=== PATIENT | female | born 1995 | race Hispanic/Latino ===

== ENCOUNTER 2018-10-15 21:49 | Emergency (ER) | payer OTHER, SELFPAY ==
[2018-10-15] MEDS ORDERED: METOCLOPRAMIDE 10 MG/2mL INJ ONE (22:55)
[2018-10-15] MEDS ORDERED: MEPERIDINE HCL 25 MG/0.5 ML ONE (22:55)
[2018-10-15] MEDS ORDERED: NA CHLORIDE 0.9% 1,000 ML ONE (22:55)
--- NOTE | 2018-10-15 23:47 | ER ---
Nurse's Notes [facility] Name: Margaret oT Age: 23 yrs Sex: Female : 1995 Arrival Date: 10/15/2018 Time: 21:51 Bed 8 Private MD: Diagnosis: Headache Presentation: 10/15 22:00 Presenting complaint: Patient states: she has had a headache since last night which has bb not gone away she has taken over the counter medications with no relief the pain is throbbing pt denies nausea, vomiting or neck pain. Transition of care: patient was not received from another setting of care. Onset of symptoms was October 14, 2018. Risk Assessment: Do you want to hurt yourself or someone else? Patient reports no desire to harm self or others. Initial Sepsis Screen: Does the patient meet any 2 criteria? No. Patient's initial sepsis screen is negative. Does the patient have a suspected source of infection? No. Patient's initial sepsis screen is negative. Care prior to arrival: None. 22:00 Method Of Arrival: Ambulatory bb 22:00 Acuity: OTILIA 3 bb Triage Assessment: 22:30 Headache History: Denies prior headaches. General: Appears uncomfortable, Behavior is ea calm, cooperative, appropriate for age. Pain: Complains of pain in top of head Pain currently is 8 out of 10 on a pain scale. Quality of pain is described as aching, Pain began suddenly, Also complains of no other associated symptoms. EENT: No signs and/or symptoms were reported regarding the EENT system. Neuro: Level of Consciousness is awake, alert, obeys commands, Oriented to person, place, time, situation. Respiratory: Airway is patent Respiratory effort is even, unlabored, Respiratory pattern is regular, symmetrical. Derm: Skin is pink, warm \T\ dry. Musculoskeletal: Circulation, motion, and sensation intact. 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 - Social history:: Smoking status: Patient/guardian denies using tobacco. - Family history:: not pertinent. - Ebola Screening: : No symptoms or risks identified at this time. - Hospitalizations: : No recent hospitalization is reported. Screenin:29 Abuse screen: Denies threats or abuse. Nutritional screening: No deficits noted. ea Tuberculosis screening: No symptoms or risk factors identified. Fall Risk None identified. Assessment: 22:19 Reassessment: Pt taken to CT. ea 23:18 Reassessment: Patient and/or family updated on plan of care and expected duration. Pain ea level reassessed. Patient is alert, oriented x 3, equal unlabored respirations, skin warm/dry/pink. Symptoms improved Patient states feeling better. 23:53 Reassessment: Patient and/or family updated on plan of care and expected duration. Pain ea level reassessed. Patient is alert, oriented x 3, equal unlabored respirations, skin warm/dry/pink. Discharge instruction given to patient, verbalized the understanding of instruction. Pt left ED ambulatory, pt tolerating well. Patient states feeling better. Vital Signs: 22:04 BP 126 / 80; Pulse 92; Resp 16 S; Temp 98(O); Pulse Ox 99% on R/A; Weight 111.13 kg bb (R); Height 5 ft. 5 in. (165.10 cm) (R); Pain 8/10; 0612 00:00 BP 128 / 70; Pulse 80; Resp 18; Temp 97.6; Pulse Ox 99% ; ea 10/15 22:04 Body Mass Index 40.77 (111.13 kg, 165.10 cm) bb [place] Coma Score: 10/15 23:46 Eye Response: spontaneous(4). Verbal Response: oriented(5). Motor Response: obeys rn commands(6). Total: 15. ED Course: 21:51 Patient arrived in ED. es 21:52 Remy Reveles MD is Attending Physician. rn 22:03 Triage completed. bb 22:04 Arm band placed on Patient placed in an exam room, on a stretcher, on pulse oximetry. bb 22:19 Miriam Hayes, RN is Primary Nurse. ea 22:29 Patient has correct armband on for positive identification. Bed in low position. Call ea light in reach. Side rails up X2. 22:35 CT Head Brain wo Cont In Process Unspecified. EDMS 10/16 00:00 No provider procedures requiring assistance completed. IV discontinued, intact, ea bleeding controlled, No redness/swelling at site. Pressure dressing applied. Administered Medications: 10/15 22:43 Drug: NS 0.9% 1000 ml Route: IV; Rate: 1000 ml; Site: right forearm; rv 22:44 Drug: Reglan 10 mg Route: IVP; Site: right antecubital; rv 23:33 Follow up: Response: No adverse reaction; Pain is decreased ea 22:44 Drug: Demerol 25 mg Route: IVP; Site: right antecubital; rv 23:33 Follow up: Response: No adverse reaction; Pain is decreased ea Outcome: 23:46 Discharge ordered by . thalia 10/16 00:00 Patient left the ED. ea 00:01 Discharged to home ambulatory, with significant other. ea 00:01 Condition: improved 00:01 Discharge instructions given to patient, Instructed on discharge instructions, follow up and referral plans. Demonstrated understanding of instructions, follow-up care. Signatures: Dispatcher [employer] Katey Sarmiento Brenda, RN RN Remy Tao MD MD rn Antunez, Elena, RN RN ea Vicente, Ronaldo RN RN rv
--- NOTE | 2018-10-15 23:47 | EDPHYS ---
Physician Documentation [facility] Name: Margaret oT Age: 23 yrs Sex: Female : 1995 Arrival Date: 10/15/2018 Time: 21:51 Bed 8 Private MD: ED Physician Remy Reveles HPI: 10/15 22:02 This 23 yrs old Female presents to ER via Unassigned with complaints of rn Headache. 22:02 The patient complains of pain to the forehead and back of head. The patient describes rn the headache as aching, throbbing. Onset: The symptoms/episode began/occurred yesterday. Associated signs and symptoms: Pertinent negatives: altered mental status, dizziness, fever, malaise, nausea, neck stiffness, paresthesias, Photophobia rash, sinus congestion, sinus tenderness, vision changes, vision loss, vomiting, weakness, vertigo. Severity of symptoms: At its worst the pain was moderate, in the emergency department the pain is unchanged. Headache History: The patient has had previous headaches and this one is more severe than previous episodes. The symptoms are alleviated by nothing. the symptoms are aggravated by nothing. The patient has experienced similar episodes in the past. Reports several headaches in past but this one is worse, no trauma, no fever or stiff neck, no vomiting, no focal neurological complaint, no sore throat, no sinus problems. Doesn't think she is . No infectious symptoms. Just didn't go away so came in. No famhx of aneurysm or brain tumor.. 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 - Social history:: Smoking status: Patient/guardian denies using tobacco. - Family history:: not pertinent. - Ebola Screening: : No symptoms or risks identified at this time. - Hospitalizations: : No recent hospitalization is reported. ROS: 22:03 Constitutional: Negative for fever, chills, and weight loss, Eyes: Negative for injury, rn pain, redness, and discharge, Neck: Negative for injury, pain, and swelling, Cardiovascular: Negative for chest pain, palpitations, and edema, Respiratory: Negative for shortness of breath, cough, wheezing, and pleuritic chest pain, Abdomen/GI: Negative for abdominal pain, nausea, vomiting, diarrhea, and constipation, MS/Extremity: Negative for injury and deformity, Skin: Negative for injury, rash, and discoloration, Neuro: Negative for weakness, numbness, tingling, and seizure, + for headache Exam: 22:03 Constitutional: This is a well developed, well nourished patient who is awake, alert, rn and in no acute distress. Ambulatory to room without difficulty or distress Head/Face: Normocephalic, atraumatic. Eyes: Pupils equal round and reactive to light, extra-ocular motions intact. Lids and lashes normal. Conjunctiva and sclera are non-icteric and not injected. Cornea within normal limits. Periorbital areas with no swelling, redness, or edema. ENT: MMM, no oral lesions, no swelling or exudate Neck: Trachea midline, no thyromegaly or masses palpated, and no cervical lymphadenopathy. Supple, full range of motion without nuchal rigidity, or vertebral point tenderness. No Meningismus. Respiratory: No increased work of breathing, no retractions or nasal flaring. Skin: Warm, dry with normal turgor. Normal color with no rashes, no lesions, and no evidence of cellulitis. MS/ Extremity: Pulses equal, no cyanosis. Neurovascular intact. Full, normal range of motion. Equal circumference. Neuro: Awake and alert, GCS 15, oriented to person, place, time, and situation. Cranial nerves II-XII grossly intact. Motor strength 5/5 in all extremities. Sensory grossly intact. Cerebellar exam normal. Normal gait. Vital Signs: 22:04 BP 126 / 80; Pulse 92; Resp 16 S; Temp 98(O); Pulse Ox 99% on R/A; Weight 111.13 kg bb (R); Height 5 ft. 5 in. (165.10 cm) (R); Pain 8/10; 10/16 00:00 BP 128 / 70; Pulse 80; Resp 18; Temp 97.6; Pulse Ox 99% ; ea 10/15 22:04 Body Mass Index 40.77 (111.13 kg, 165.10 cm) bb [place] Coma Score: 10/15 23:46 Eye Response: spontaneous(4). Verbal Response: oriented(5). Motor Response: obeys rn commands(6). Total: 15. MDM: 21:52 Patient medically screened. rn 23:46 Differential diagnosis: hypertensive headache, migraine, neoplasm, tension headache, rn vasomotor headache. Data reviewed: vital signs, nurses notes, lab test result(s), urinalysis, UPT: radiologic studies, CT scan. Counseling: I had a detailed discussion with the patient and/or guardian regarding: the historical points, exam findings, and any diagnostic results supporting the discharge/admit diagnosis, lab results, radiology results, the need for outpatient follow up, to return to the emergency department if symptoms worsen or persist or if there are any questions or concerns that arise at home. Response to treatment: the patient's symptoms have markedly improved after treatment, and as a result, I will discharge patient. Special discussion: I discussed with the patient/guardian in detail that at this point there is no indication for admission to the hospital. It is understood, however, that if the symptoms persist or worsen the patient needs to return immediately for re-evaluation. 10/15 22:28 Order name: Urine Dipstick--Ancillary (enter results) [facility] 10/15 22:28 Order name: Urine --Ancillary (enter results) [facility] 10/15 22:01 Order name: CT Head Brain wo Cont 10/15 22:03 Order name: Urine Dipstick-Ancillary (obtain specimen); Complete Time: 22:29 10/15 22:03 Order name: Urine Test (obtain specimen); Complete Time: 22:29 10/15 22:32 Order name: IV Start; Complete Time: 22:41 rn Administered Medications: 22:43 Drug: NS 0.9% 1000 ml Route: IV; Rate: 1000 ml; Site: right forearm; rv 22:44 Drug: Reglan 10 mg Route: IVP; Site: right antecubital; rv 23:33 Follow up: Response: No adverse reaction; Pain is decreased ea 22:44 Drug: Demerol 25 mg Route: IVP; Site: right antecubital; rv 23:33 Follow up: Response: No adverse reaction; Pain is decreased ea Disposition: 10/15/18 23:46 Discharged to Home. Impression: Headache. - Condition is Stable. - Discharge Instructions: General Headache Without Cause. - Medication Reconciliation Form, Thank You Letter, Antibiotic Education, Prescription Opioid Use form. - Follow up: Private Physician; When: As needed; Reason: Recheck today's complaints, Re-evaluation by your physician. - Problem is new. - Symptoms have improved. Signatures: Dispatcher [employer] EDMontserrat Sanchez RN RN Remy Tao MD MD rn Antunez, Elena, RN RN ea Vicente, Ronaldo RN RN rv Corrections: (The following items were deleted from the chart) 10/16 00:00 10/15 23:46 10/15/2018 23:46 Discharged to Home. Impression: Headache. Condition is ea Stable. Forms are Medication Reconciliation Form, Thank You Letter, Antibiotic Education, Prescription Opioid Use. Follow up: Private Physician; When: As needed; Reason: Recheck today's complaints, Re-evaluation by your physician. Problem is new. Symptoms have improved. rn
[2018-10-16 00:32] LABS: Urine Blood NEGATIVE (NEG); Urine Glucose NEGATIVE (NEG); Urine Protein NEGATIVE (NEG)
--- NOTE | 2018-10-16 11:08 | RAD REPORT ---
EXAM DESCRIPTION: CT - Head Brain Wo Cont - 10/15/2018 11:06 pm CLINICAL HISTORY: 23 years Female HEADACHE TECHNIQUE: Contiguous axial CT images obtained through the brain without IV contrast. This CT exam was performed according to our departmental dose-optimization program, which includes on e or more of the following dose reduction techniques: automated exposure control, adjustment of the m A and/or kV according to patient size, and/or use of iterative reconstruction technique. COMPARISON: No prior exams provided for comparison. FINDINGS: There is no intracranial hemorrhage, extraaxial collection, or acute transcortical infarct ion. The ventricles are normal in size and contour without mass-effect or midline shift. Osseous structure s are normal. Mild left ethmoid and left maxillary sinusitis. The remainder of the visualized paranasal sinuses and mastoid air cells are clear. IMPRESSION: Mild left ethmoid and left maxillary sinusitis. No other acute intracranial abnormalitie s. Electronically signed by: Macy Ocampo MD 10/15/2018 10:48 PM CDT Due to temporary technical issues with the PACS/Fluency reporting system, reports are being signed by the in house radiologist as a courtesy to ensure prompt reporting. The interpreting radiologist is f ully responsible for the content of the report.
== END 2018-10-16 | disposition home or self-care (01) ==
LOC: ER 21:49
DX: R51 Headache (principal); J45.909 Unspecified asthma, uncomplicated
CPT/HCPCS: 70450; 81003; 81025; 96374; 96375; 99283; J2175; J2765; J7030

== ENCOUNTER 2018-10-17 00:32 | Emergency (ER) | payer SELFPAY ==
[2018-10-17] MEDS ORDERED: NA CHLORIDE 0.9% 1,000 ML ONE (01:25)
[2018-10-17] MEDS ORDERED: METOCLOPRAMIDE 10 MG/2mL INJ ONE (01:25)
[2018-10-17] MEDS ORDERED: KETOROLAC 30 MG/ML INJ ONE (01:25)
[2018-10-17] MEDS ORDERED: DIPHENHYDRAMINE 50 MG/ML VIAL ONE (01:25)
[2018-10-17] MEDS ORDERED: DEXAMETHASONE 10 MG/ML VIAL ONE (01:25)
--- NOTE | 2018-10-17 02:39 | ER ---
Nurse's Notes [facility] Name: Margaret To Age: 23 yrs Sex: Female : 1995 Arrival Date: 10/17/2018 Time: 00:33 Bed 8 Private MD: Diagnosis: Migraine Presentation: 10/17 00:40 Presenting complaint: Patient states: that she was seen yesterday for a headache, was fc given medications and felt better. Woke up this am and the pain was back and it was worse. Is now also light headed, having nausea and vomiting. Transition of care: patient was not received from another setting of care. Onset of symptoms was October 16, 2018. Risk Assessment: Do you want to hurt yourself or someone else? Patient reports no desire to harm self or others. Initial Sepsis Screen: Does the patient meet any 2 criteria? No. Patient's initial sepsis screen is negative. Does the patient have a suspected source of infection? No. Patient's initial sepsis screen is negative. Care prior to arrival: None. 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 - Social history:: Smoking status: Patient/guardian denies using tobacco, Patient/guardian denies using alcohol, street drugs. - Ebola Screening: : Patient negative for fever greater than or equal to 101.5 degrees Fahrenheit, and additional compatible Ebola Virus Disease symptoms Patient denies exposure to infectious person Patient denies travel to an Ebola-affected area in the 21 days before illness onset. - Family history:: not pertinent. - Hospitalizations: : No recent hospitalization is reported. Screenin:40 Abuse screen: Denies threats or abuse. Nutritional screening: No deficits noted. fc Tuberculosis screening: No symptoms or risk factors identified. Fall Risk None identified. Assessment: 00:50 General: Appears in no apparent distress. comfortable, Behavior is calm, cooperative, aa1 appropriate for age. Pain: Complains of pain in forehead and top of head Quality of pain is described as pressure, throbbing, Pain began 1 day ago. Neuro: Level of Consciousness is awake, alert, obeys commands, Oriented to person, place, time, situation, Moves all extremities. Full function Gait is steady, Speech is normal, Pupils are PERRLA, Reports headache photophobia Denies blurred vision dizziness. Cardiovascular: Heart tones S1 S2 present. Respiratory: Airway is patent Respiratory effort is even, unlabored, Respiratory pattern is regular, symmetrical. GI: Abdomen is non-distended, Abd is soft and non tender X 4 quads. Reports nausea. : No signs and/or symptoms were reported regarding the genitourinary system. EENT: No signs and/or symptoms were reported regarding the EENT system. Derm: Skin is intact, is healthy with good turgor, Skin is pink, warm \T\ dry. Musculoskeletal: Circulation, motion, and sensation intact. Capillary refill < 3 seconds. 02:12 Reassessment: Patient appears in no apparent distress at this time. Patient and/or aa1 family updated on plan of care and expected duration. Pain level reassessed. Patient is alert, oriented x 3, equal unlabored respirations, skin warm/dry/pink. Pt reports headache has improved but not completely resolved; MD notified. 02:46 Reassessment: Patient appears in no apparent distress at this time. Patient is alert, aa1 oriented x 3, equal unlabored respirations, skin warm/dry/pink. Discussed d/c \T\ f/u instructions with pt; denies questions or concerns at this time Patient states feeling better. Vital Signs: 00:40 BP 117 / 75; Pulse 87; Resp 18; Temp 98.2(O); Pulse Ox 98% on R/A; Weight 111.13 kg fc (R); Height 5 ft. 5 in. (165.10 cm) (R); Pain 10/10; 01:30 BP 112 / 71; Pulse 72; Resp 18; Pulse Ox 98% on R/A; aa1 02:12 BP 102 / 72; Pulse 73; Resp 20; Pulse Ox 98% on R/A; Pain 5/10; aa1 00:40 Body Mass Index 40.77 (111.13 kg, 165.10 cm) [place] Coma Score: 02:37 Eye Response: spontaneous(4). Verbal Response: oriented(5). Motor Response: obeys rn commands(6). Total: 15. ED Course: 00:33 Patient arrived in ED. am2 00:40 Arm band placed on Patient placed in an exam room, on a stretcher. fc 00:40 Patient has correct armband on for positive identification. Placed in gown. Bed in low fc position. Call light in reach. Side rails up X2. residential monitor on. Pulse ox on. NIBP on. 00:48 Remy Reveles MD is Attending Physician. rn 00:59 Aisha Jennings RN is Primary Nurse. aa1 00:59 Triage completed. fc 01:00 Inserted saline lock: 22 gauge in right antecubital area, using aseptic technique. aa1 02:38 Kai Alanis MD is Referral Physician. rn 02:46 No provider procedures requiring assistance completed. IV discontinued, intact, aa1 bleeding controlled, No redness/swelling at site. Pressure dressing applied. Administered Medications: 01:15 Drug: NS 0.9% 1000 ml Route: IV; Rate: 1000 ml; Site: right antecubital; aa1 01:15 Drug: Reglan 10 mg Route: IVP; Site: right antecubital; aa1 01:17 Drug: TORadol 30 mg Route: IVP; Site: right antecubital; aa1 01:18 Drug: Benadryl 25 mg Route: IVP; Site: right antecubital; aa1 01:19 Drug: Decadron - Dexamethasone 10 mg Route: IVP; Site: right antecubital; aa1 Outcome: 02:39 Discharge ordered by . rn 02:46 Discharged to home ambulatory, with significant other. aa1 02:46 Condition: good 02:46 Discharge instructions given to patient, significant other, Instructed on discharge instructions, follow up and referral plans. medication usage, Demonstrated understanding of instructions, follow-up care, medications, Prescriptions given X 2. 02:50 Patient left the ED. aa1 Signatures: Aisha Jennings RN RN aa1 Heide Pena RN RN Remy Reveles MD MD rn Moreno, Amanda am2
--- NOTE | 2018-10-17 02:39 | EDPHYS ---
Physician Documentation [facility] Name: Margaret To Age: 23 yrs Sex: Female : 1995 Arrival Date: 10/17/2018 Time: 00:33 Bed 8 Private MD: ED Physician Remy Reveles HPI: 10/17 01:10 This 23 yrs old Female presents to ER via Wheelchair with complaints of rn Nausea, Headache, Low Back Pain. 01:11 The patient complains of pain to the top of head and forehead. The patient describes rn the headache as aching. 01:11 Onset: The symptoms/episode began/occurred this morning. Associated signs and symptoms: rn Pertinent positives: This patient does not have any pertinent positive signs or symptoms associated with a headache. Pertinent negatives: altered mental status, fever, neck stiffness, vision changes, vision loss. Severity of symptoms: At its worst the pain was moderate, in the emergency department the pain is unchanged. The symptoms are alleviated by nothing. the symptoms are aggravated by movement. The patient has experienced a previous episode. The patient has been recently seen at the [facility] Emergency Department. Seen by me yesterday, had negative ct head and negative UA/UPT. Reports felt better, went home, fell asleep, woke up today with worse headache, assoc with nausea and low back pain. No injury. No fever. No new focal neurological complaint, no abd pain. No urinary symptoms. . 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 - Social history:: Smoking status: Patient/guardian denies using tobacco, Patient/guardian denies using alcohol, street drugs. - Ebola Screening: : Patient negative for fever greater than or equal to 101.5 degrees Fahrenheit, and additional compatible Ebola Virus Disease symptoms Patient denies exposure to infectious person Patient denies travel to an Ebola-affected area in the 21 days before illness onset. - Family history:: not pertinent. - Hospitalizations: : No recent hospitalization is reported. ROS: 01:11 Constitutional: Negative for fever, chills, and weight loss, Eyes: Negative for injury, rn pain, redness, and discharge, Neck: Negative for injury, pain, and swelling, Cardiovascular: Negative for chest pain, palpitations, and edema, Respiratory: Negative for shortness of breath, cough, wheezing, and pleuritic chest pain, Abdomen/GI: Negative for abdominal pain, diarrhea, and constipation, Back: Negative for injury MS/Extremity: Negative for injury and deformity, Skin: Negative for injury, rash, and discoloration, Neuro: Negative for numbness, tingling, and seizure. Exam: 01:11 Constitutional: This is a well developed, well nourished patient who is awake, alert, rn family practice to room without difficulty or assistance. Head/Face: Normocephalic, atraumatic. Eyes: Pupils equal round and reactive to light, extra-ocular motions intact. Lids and lashes normal. Conjunctiva and sclera are non-icteric and not injected. Cornea within normal limits. Periorbital areas with no swelling, redness, or edema. ENT: MMM Neck: Trachea midline, no thyromegaly or masses palpated, and no cervical lymphadenopathy. Supple, full range of motion without nuchal rigidity, or vertebral point tenderness. No Meningismus. Skin: Warm, dry, no rashes, no lesions, and no evidence of cellulitis. MS/ Extremity: Pulses equal, no cyanosis. Neurovascular intact. Full, normal range of motion. Equal circumference. Neuro: Awake and alert, GCS 15, oriented to person, place, time, and situation. Cranial nerves II-XII grossly intact. Motor strength 5/5 in all extremities. Sensory grossly intact. Cerebellar exam normal. Normal gait. Vital Signs: 00:40 BP 117 / 75; Pulse 87; Resp 18; Temp 98.2(O); Pulse Ox 98% on R/A; Weight 111.13 kg fc (R); Height 5 ft. 5 in. (165.10 cm) (R); Pain 10/10; 01:30 BP 112 / 71; Pulse 72; Resp 18; Pulse Ox 98% on R/A; aa1 02:12 BP 102 / 72; Pulse 73; Resp 20; Pulse Ox 98% on R/A; Pain 5/10; aa1 00:40 Body Mass Index 40.77 (111.13 kg, 165.10 cm) fc Jorge Coma Score: 02:37 Eye Response: spontaneous(4). Verbal Response: oriented(5). Motor Response: obeys rn commands(6). Total: 15. MDM: 00:48 Patient medically screened. rn 02:37 Differential diagnosis: migraine. Data reviewed: vital signs, nurses notes, old medical rn records, and as a result, I will discharge patient. Counseling: I had a detailed discussion with the patient and/or guardian regarding: the historical points, exam findings, and any diagnostic results supporting the discharge/admit diagnosis, the need for outpatient follow up, to return to the emergency department if symptoms worsen or persist or if there are any questions or concerns that arise at home. Response to treatment: the patient's symptoms have markedly improved after treatment, the patient's condition has returned to base line, the patient is now symptom free, and as a result, I will discharge patient. Special discussion: I discussed with the patient/guardian in detail that at this point there is no indication for admission to the hospital. It is understood, however, that if the symptoms persist or worsen the patient needs to return immediately for re-evaluation. Based on the history and exam findings, there is no indication for further emergent testing or inpatient evaluation. I discussed with the patient/guardian the need to see the neurologist for further evaluation of the symptoms. ED course: Pt sleeping, headache gone, states feels much better. Will dc home with pain medication this time and urged her to f/u with neuro. . 10/17 00:56 Order name: IV Start; Complete Time: 01:08 rn Administered Medications: 01:15 Drug: NS 0.9% 1000 ml Route: IV; Rate: 1000 ml; Site: right antecubital; aa1 01:15 Drug: Reglan 10 mg Route: IVP; Site: right antecubital; aa1 01:17 Drug: TORadol 30 mg Route: IVP; Site: right antecubital; aa1 01:18 Drug: Benadryl 25 mg Route: IVP; Site: right antecubital; aa1 01:19 Drug: Decadron - Dexamethasone 10 mg Route: IVP; Site: right antecubital; aa1 Disposition: 10/17/18 02:39 Discharged to Home. Impression: Migraine. - Condition is Stable. - Discharge Instructions: Migraine Headache. - Prescriptions for Ibuprofen 800 mg Oral Tablet - take 1 tablet by ORAL route every 12 hours As needed take with food; 20 tablet. Tylenol- Codeine #3 300-30 mg Oral Tablet - take 1 tablet by ORAL route every 6 hours As needed; 20 tablet. - Medication Reconciliation Form, Thank You Letter, Antibiotic Education, Prescription Opioid Use form. - Family Work Release (10/17/18 02:50). aa1 - Follow up: Kai Alanis MD; When: As needed; Reason: Recheck today's complaints, Re-evaluation by your physician. - Problem is an ongoing problem. - Symptoms have improved. Signatures: Dispatcher [employer] EDAisha Baird RN RN aa1 Alysa Carrasco, RANCH COOK-C RANCH COOK-Csnw Heide Pena RN RN Remy Reveles MD MD process engineering intern: (The following items were deleted from the chart) 00:56 00:41 Urine Dipstick-Ancillary ordered. snw mw2 00:57 00:41 Urine Test [facility]. [facility] mw2 02:50 02:39 10/17/2018 02:39 Discharged to Home. Impression: Migraine. Condition is Stable. aa1 Forms are Medication Reconciliation Form, Thank You Letter, Antibiotic Education, Prescription Opioid Use. Follow up: Kai Alanis; When: As needed; Reason: Recheck today's complaints, Re-evaluation by your physician. Problem is an ongoing problem. Symptoms have improved. rn
== END 2018-10-17 02:50 | disposition home or self-care (01) ==
LOC: ER 00:32
DX: G43.909 Migraine, unspecified, not intractable, without status migrainosus (principal); J45.909 Unspecified asthma, uncomplicated
CPT/HCPCS: 96374; 96375; 99284; J1100; J2765; J7030

== ENCOUNTER 2018-12-26 17:13 | Emergency (ER) | payer SELFPAY ==
[2018-12-26] MEDS ORDERED: IPRATROPIUM BROM 0.5MG/2.5ML ONE (17:33)
[2018-12-26] MEDS ORDERED: METHYLPREDNISOLONE 125 MG INJ ONE (17:33)
[2018-12-26] MEDS ORDERED: ALBUTEROL 2.5 MG/3 ML NEB SOL ONE (17:33)
[2018-12-26] MEDS ORDERED: predniSONE 20 MG TAB ONE (17:33)
[2018-12-26 18:06] LABS: Absolute Lymphocytes (CBC) 0.9 K/uL (0.7-4.9); Basophils % 0.2 % (0-1.3); Hematocrit 38.9 % (36.0-45.0); Lymphocytes % 11.5 % (15.3-44.8); MPV 8.1 fL (7.6-11.3); RBC Red Blood Cell Count 4.67 M/uL (3.86-4.86)
--- NOTE | 2018-12-26 18:17 | ER ---
Nurse's Notes [facility] Name: Margaret To Age: 23 yrs Sex: Female : 1995 Arrival Date: 12/26/2018 Time: 17:14 Bed 20 Private MD: None, None Diagnosis: Acute upper respiratory infection, unspecified;Asthma Presentation: 12/26 17:21 Presenting complaint: Patient states: I started having chest pain and SOB last night, I la1 have asthma and it felt like that but I tried my nebs and inhaler and they are not helping. Transition of care: patient was not received from another setting of care. Onset of symptoms was December 26, 2018. Risk Assessment: Do you want to hurt yourself or someone else? Patient reports no desire to harm self or others. Initial Sepsis Screen: Does the patient meet any 2 criteria? No. Patient's initial sepsis screen is negative. Does the patient have a suspected source of infection? No. Patient's initial sepsis screen is negative. Care prior to arrival: None. 17:21 Method Of Arrival: Ambulatory la1 17:21 Acuity: OTILIA 3 la1 Historical: - Allergies: 17:23 NKA; la1 - PMHx: 17:23 Asthma; Headaches; la1 - Immunization history:: Adult Immunizations up to date. - Social history:: Smoking status: Patient/guardian denies using tobacco. - Ebola Screening: : No symptoms or risks identified at this time. - Family history:: not pertinent. Screenin:33 Abuse screen: Denies threats or abuse. Denies injuries from another. Nutritional jl7 screening: No deficits noted. Tuberculosis screening: Fall Risk IV access (20 points). Total Little Fall Scale indicates No Risk (0-24 pts). Assessment: 18:00 General: Appears in no apparent distress. uncomfortable, Behavior is calm, cooperative, jl7 appropriate for age. Pain: Pain does not radiate. Pain began gradually. Neuro: Level of Consciousness is awake, alert, obeys commands, Oriented to person, place, time, situation. Cardiovascular: Patient's skin is warm and dry. Respiratory: Airway is patent Respiratory effort is even, unlabored, Respiratory pattern is regular, symmetrical. Derm: Skin is pink, warm \T\ dry. 18:33 Reassessment: Patient appears in no apparent distress at this time. Patient states jl7 feeling better. Patient states symptoms have improved. Vital Signs: 17:23 BP 123 / 80; Pulse 94; Resp 20; Temp 98.4; Pulse Ox 98% on R/A; Weight 111.13 kg; la1 Height 5 ft. 5 in. (165.10 cm); 18:33 BP 132 / 80; Pulse 102; Resp 16; Pulse Ox 100% ; jl7 17:23 Body Mass Index 40.77 (111.13 kg, 165.10 cm) la1 ED Course: 17:14 Patient arrived in ED. dl4 17:14 None, None is Private Physician. dl4 17:22 Triage completed. la1 17:23 Arm band placed on right wrist. la1 17:25 Luigi Bullock MD is Attending Physician. hannah 17:33 Amy Spears RN is Primary Nurse. jl7 17:45 Radiology exam delayed due to IV insertion attempt and/or patient not having mh1 appropriate IV at this time. 17:46 Missed attempt(s): 20 gauge in right antecubital area. Bleeding controlled, band aid dh3 applied, catheter tip intact. 17:48 Inserted saline lock: 22 gauge in right forearm, using aseptic technique. Blood dh3 collected. by Martita Shipley RN. 17:48 Initial lab(s) drawn, by ED staff, sent to lab. dh3 18:00 Patient has correct armband on for positive identification. Placed in gown. Bed in low jl7 position. Call light in reach. Side rails up X 1. Pulse ox on. NIBP on. 18:10 Chest Single View XRAY In Process Unspecified. EDMS 18:16 Juan Pulido MD is Referral Physician. [facility] 18:16 Urine collected: clean catch specimen, clear. dh3 18:34 No provider procedures requiring assistance completed. IV discontinued, intact, jl7 bleeding controlled, No redness/swelling at site. Pressure dressing applied. Patient maintains SpO2 saturation greater than 95% on room air. Administered Medications: 17:52 Drug: SOLU-Medrol 125 mg Route: IVP; Site: right forearm; hb 18:31 Follow up: Response: No adverse reaction jl7 17:52 Drug: predniSONE 60 mg Route: PO; hb 18:32 Follow up: Response: No adverse reaction jl7 17:52 Drug: Albuterol - atroVENT (3:1) (2.5 mg - 0.5 mg) 3 ml Route: Nebulizer; 18:32 Follow up: Response: No adverse reaction 7 18:25 Drug: Rocephin 1 grams Route: IV; Rate: per protocol; Site: right forearm; 7 18:27 Follow up: Response: No adverse reaction; IV Status: Completed infusion [facility] 18:31 Drug: Zithromax 500 mg Route: PO; [facility] 18:31 Follow up: Response: Medication administered at discharge. [facility] Outcome: 18:17 Discharge ordered by . hannah 18:34 Discharged to home ambulatory. [facility] 18:34 Condition: stable 18:34 Discharge instructions given to patient, Instructed on discharge instructions, follow up and referral plans. medication usage, Demonstrated understanding of instructions, follow-up care, medications, Prescriptions given X 4. 18:35 Patient left the ED. 7 Signatures: Dispatcher [employer] EDMS Luigi Bullock MD MD cha Harvey, Martha 1 Kit Perales RN RN la1 Martita Shipley RN RN hb Leal, Jahala, RN RN jl7 Marilyn Santa3 Brodie Bal4 Corrections: (The following items were deleted from the chart) 17:57 17:48 Inserted saline lock: 22 gauge in right forearm, using aseptic technique. Blood dh3 collected. by Martita Shipley, JOSE dh3
--- NOTE | 2018-12-26 18:17 | EDPHYS ---
Physician Documentation [facility] Name: Margaret To Age: 23 yrs Sex: Female : 1995 Arrival Date: 12/26/2018 Time: 17:14 Bed 20 Private MD: None, None ED Physician Luigi Bullock HPI: 12/26 17:41 This 23 yrs old Female presents to ER via Ambulatory with complaints of Chest hannah Pain, Breathing Difficulty. 17:41 The patient or guardian reports chest pain that is located primarily in the anterior hannah chest wall, bilaterally. The pain does not radiate. Associated signs and symptoms: Pertinent positives: shortness of breath. The chest pain is described as aching. Modifying factors: The symptoms are alleviated by remaining still, the symptoms are aggravated by breathing. Severity of pain: At its worst the pain was mild in the emergency department the pain is unchanged. The patient has not experienced similar symptoms in the past. Historical: - Allergies: 17:23 NKA; la1 - PMHx: 17:23 Asthma; Headaches; la1 - Immunization history:: Adult Immunizations up to date. - Social history:: Smoking status: Patient/guardian denies using tobacco. - Ebola Screening: : No symptoms or risks identified at this time. - Family history:: not pertinent. ROS: 17:41 Constitutional: Negative for fever, chills, and weight loss, Eyes: Negative for injury, hannah pain, redness, and discharge, ENT: Negative for injury, pain, and discharge, Neck: Negative for injury, pain, and swelling, Cardiovascular: Negative for chest pain, palpitations, and edema, Abdomen/GI: Negative for abdominal pain, nausea, vomiting, diarrhea, and constipation, Back: Negative for injury and pain, : Negative for injury, bleeding, discharge, and swelling, MS/Extremity: Negative for injury and deformity, Skin: Negative for injury, rash, and discoloration, Neuro: Negative for headache, weakness, numbness, tingling, and seizure, Psych: Negative for depression, anxiety, suicide ideation, homicidal ideation, and hallucinations, Allergy/Immunology: Negative for hives, rash, and allergies, Endocrine: Negative for neck swelling, polydipsia, polyuria, polyphagia, and marked weight changes, Hematologic/Lymphatic: Negative for swollen nodes, abnormal bleeding, and unusual bruising. 17:41 Respiratory: Positive for cough, shortness of breath, wheezing, inspiratory, expiratory. Exam: 17:41 Constitutional: This is a well developed, well nourished patient who is awake, alert, hannah and in no acute distress. Head/Face: Normocephalic, atraumatic. Eyes: Pupils equal round and reactive to light, extra-ocular motions intact. Lids and lashes normal. Conjunctiva and sclera are non-icteric and not injected. Cornea within normal limits. Periorbital areas with no swelling, redness, or edema. ENT: Nares patent. No nasal discharge, no septal abnormalities noted. Tympanic membranes are normal and external auditory canals are clear. Oropharynx with no redness, swelling, or masses, exudates, or evidence of obstruction, uvula midline. Mucous membranes moist. Neck: Trachea midline, no thyromegaly or masses palpated, and no cervical lymphadenopathy. Supple, full range of motion without nuchal rigidity, or vertebral point tenderness. No Meningismus. Chest/axilla: Normal chest wall appearance and motion. Nontender with no deformity. No lesions are appreciated. Cardiovascular: Regular rate and rhythm with a normal S1 and S2. No gallops, murmurs, or rubs. Normal PMI, no JVD. No pulse deficits. Abdomen/GI: Soft, non-tender, with normal bowel sounds. No distension or tympany. No guarding or rebound. No evidence of tenderness throughout. Back: No spinal tenderness. No costovertebral tenderness. Full range of motion. Female : Normal external genitalia. Skin: Warm, dry with normal turgor. Normal color with no rashes, no lesions, and no evidence of cellulitis. MS/ Extremity: Pulses equal, no cyanosis. Neurovascular intact. Full, normal range of motion. Neuro: Awake and alert, GCS 15, oriented to person, place, time, and situation. Cranial nerves II-XII grossly intact. Motor strength 5/5 in all extremities. Sensory grossly intact. Cerebellar exam normal. Normal gait. Psych: Awake, alert, with orientation to person, place and time. Behavior, mood, and affect are within normal limits. 17:41 Musculoskeletal/extremity: DVT Exam: No signs of deep vein thrombosis. no pain, no swelling, no tenderness, negative Homans' sign noted on exam, no appreciated bluish discoloration, no erythema, no increased warmth. 18:33 Musculoskeletal/extremity: DVT Exam: no trauma no stasis, no hc state. [facility] Vital Signs: 17:23 BP 123 / 80; Pulse 94; Resp 20; Temp 98.4; Pulse Ox 98% on R/A; Weight 111.13 kg; la1 Height 5 ft. 5 in. (165.10 cm); 18:33 BP 132 / 80; Pulse 102; Resp 16; Pulse Ox 100% ; jl7 17:23 Body Mass Index 40.77 (111.13 kg, 165.10 cm) [facility] MDM: 17:25 Patient medically screened. [facility] 17:47 Data reviewed: vital signs, nurses notes, lab test result(s), radiologic studies. [facility] 12/26 17:28 Order name: CBC with Diff; Complete Time: 18:07 [facility] 12/26 17:28 Order name: Comprehensive Metabolic Panel; Complete Time: 18:28 [facility] 12/26 17:28 Order name: Chest Single View XRAY; Complete Time: 18:28 [facility] 12/26 18:19 Order name: Urine Dipstick--Ancillary (enter results) [facility] 12/26 18:19 Order name: Urine --Ancillary (enter results) [facility] 12/26 17:28 Order name: Urine Dipstick-Ancillary (obtain specimen); Complete Time: 18:17 [facility] 12/26 17:28 Order name: Urine Test (obtain specimen); Complete Time: 18:17 [facility] 12/26 17:47 Order name: EKG; Complete Time: 17:48 [facility] 12/26 17:47 Order name: EKG - Nurse/Tech; Complete Time: 17:58 [facility] Administered Medications: 17:52 Drug: SOLU-Medrol 125 mg Route: IVP; Site: right forearm; hb 18:31 Follow up: Response: No adverse reaction 7 17:52 Drug: predniSONE 60 mg Route: PO; hb 18:32 Follow up: Response: No adverse reaction 7 17:52 Drug: Albuterol - atroVENT (3:1) (2.5 mg - 0.5 mg) 3 ml Route: Nebulizer; hb 18:32 Follow up: Response: No adverse reaction [facility] 18:25 Drug: Rocephin 1 grams Route: IV; Rate: per protocol; Site: right forearm; jl7 18:27 Follow up: Response: No adverse reaction; IV Status: Completed infusion 18:31 Drug: Zithromax 500 mg Route: PO; 18:31 Follow up: Response: Medication administered at discharge. jl7 Disposition: 12/26/18 18:17 Discharged to Home. Impression: Acute upper respiratory infection, unspecified, Asthma. - Condition is Stable. - Discharge Instructions: Asthma, Adult, Upper Respiratory Infection, Adult, Cool Mist Vaporizer, Asthma, Adult, [id number], Cough, Adult, [id number], Cough, Adult. - Prescriptions for Albuterol Sulfate 2.5 mg /3 mL (0.083 %) Inhalation Solution for Nebulization - inhale 1 unit by NEBULIZATION route every 8 hours As needed; 1 box. Zithromax Z- Abhijit 250 mg Oral Tablet - take 1 tablet by ORAL route as directed for 5 days Day 1 - take two (2) tablets one time. Day 2, 3, 4 , 5 take one (1) tablet once daily.; 6 tablet. Prednisone 20 mg Oral Tablet - take 2 tablet by ORAL route once daily for 5 days; 10 tablet. Albuterol Sulfate 90 mcg/actuation - inhale 1-2 puff by INHALATION route every 4-6 hours; 1 Inhaler. - Medication Reconciliation Form, Thank You Letter, Antibiotic Education, Prescription Opioid Use form. - Follow up: Private Physician; When: 2 - 3 days; Reason: Recheck today's complaints, Continuance of care, Re-evaluation by your physician. Follow up: Juan Pulido MD; When: 2 - 3 days; Reason: Recheck today's complaints, Re-evaluation by your physician. - Problem is new. - Symptoms have improved. Signatures: Dispatcher [employer] EDLuigi Caldwell MD MD cha Attema, Lee RN RN la1 Martita Shipley, RN RN Amy Spears RN RN jl7 Corrections: (The following items were deleted from the chart) 18:35 18:17 12/26/2018 18:17 Discharged to Home. Impression: Acute upper respiratory jl7 infection, unspecified; Asthma. Condition is Stable. Forms are Medication Reconciliation Form, Thank You Letter, Antibiotic Education, Prescription Opioid Use. Follow up: Private Physician; When: 2 - 3 days; Reason: Recheck today's complaints, Continuance of care, Re-evaluation by your physician. Follow up: Juan Pulido; When: 2 - 3 days; Reason: Recheck today's complaints, Re-evaluation by your physician. Problem is new. Symptoms have improved. hannah
[2018-12-26] MEDS ORDERED: CEFTRIAXONE/SWI 1gm 1 GM/10 ML SYR ONE (18:19)
[2018-12-26] MEDS ORDERED: AZITHROMYCIN 250 MG TAB ONE (18:19)
--- NOTE | 2018-12-26 18:20 | RAD REPORT ---
EXAM DESCRIPTION: RAD - Chest Single View - 12/26/2018 6:10 pm CLINICAL HISTORY: COUGH Chest pain. COMPARISON: <Comparisons> FINDINGS: Portable technique limits examination quality. The lungs are grossly clear. The heart is normal in size. No displaced fractures. IMPRESSION: No acute intrathoracic process suspected.
[2018-12-26 18:25] LABS: ALT/SGPT 21 U/L (12-78); AST/SGOT 12 U/L (15-37); Albumin 4.1 g/dL (3.4-5.0); Alkaline Phosphatase 91 U/L (45-117); BUN Blood Urea Nitrogen 10 mg/dL (7-18); Bicarbonate 24 mmol/L (21-32); Bilirubin Total 0.4 mg/dL (0.2-1.0); Glucose Level 75 mg/dL (74-106); Potassium 3.7 mmol/L (3.5-5.1); Protein, Total 8.1 g/dL (6.4-8.2); Sodium Level 139 mmol/L (136-145)
[2018-12-26 18:29] LABS: Urine Blood NEGATIVE (NEG); Urine Glucose NEGATIVE (NEG); Urine Protein NEGATIVE (NEG); Urine Specific Gravity 1.025 (1.005-1.030)
== END 2018-12-26 18:35 | disposition home or self-care (01) ==
LOC: ER 17:13
DX: J06.9 Acute upper respiratory infection, unspecified (principal); J45.909 Unspecified asthma, uncomplicated
CPT/HCPCS: 36415; 71045; 80053; 81003; 81025; 85025; 93005; 94640; 96374; 96375; 99285; J0696; J2930; J7512

== ENCOUNTER 2019-01-30 12:09 | Emergency (ER) | payer SELFPAY ==
[2019-01-30] MEDS ORDERED: SMZ./TMP. 800/160 MG TABLET ONE (13:13)
--- NOTE | 2019-01-30 13:13 | ER ---
Nurse's Notes [facility] Name: Margaret To Age: 24 yrs Sex: Female : 1995 Arrival Date: 01/30/2019 Time: 12:11 Bed 12 Private MD: Diagnosis: Local infection of the skin and subcutaneous tissue, unspecified Presentation: 01/30 12:28 Presenting complaint: Patient states: Swelling and drainage to the right index finger, sg reports having itching and drainage that is clear, denies N/V//D/FEVER or chills at this time. 12:29 Transition of care: patient was not received from another setting of care. Onset of sg symptoms was January 30, 2019. Risk Assessment: Do you want to hurt yourself or someone else? Patient reports no desire to harm self or others. Initial Sepsis Screen: Does the patient meet any 2 criteria? No. Patient's initial sepsis screen is negative. Does the patient have a suspected source of infection? No. Patient's initial sepsis screen is negative. Care prior to arrival: None. 12:29 Method Of Arrival: Ambulatory sg 12:29 Acuity: OTILIA 4 sg DEVOPS: 12:27 LMP N/A - control method sg Historical: - Allergies: 12:28 NKA; sg - Home Meds: 12:28 albuterol sulfate 90 mcg/actuation Inhl HFAA 2 puffs as needed [Active]; sg - PMHx: 12:28 Asthma; Headaches; sg - PSHx: 12:28 None; sg - Immunization history:: Adult Immunizations up to date. - Social history:: Smoking status: Patient/guardian denies using tobacco. - Ebola Screening: : Patient negative for fever greater than or equal to 101.5 degrees Fahrenheit, and additional compatible Ebola Virus Disease symptoms Patient denies exposure to infectious person Patient denies travel to an Ebola-affected area in the 21 days before illness onset No symptoms or risks identified at this time. Screenin:40 Abuse screen: Denies threats or abuse. Nutritional screening: No deficits noted. aa5 Tuberculosis screening: No symptoms or risk factors identified. Fall Risk None identified. Assessment: 12:40 General: Appears comfortable, Behavior is calm, cooperative. Pain: Complains of pain in aa5 palmar aspect of proximal phalanx of right middle finger Pain does not radiate. Pain currently is 4 out of 10 on a pain scale. Quality of pain is described as aching, Is continuous. Neuro: Level of Consciousness is awake, alert, obeys commands, Oriented to person, place, time, situation. Cardiovascular: Heart tones S1 S2 present Rhythm is regular. Respiratory: Airway is patent Respiratory effort is even, unlabored, Respiratory pattern is regular, symmetrical. GI: No signs and/or symptoms were reported involving the gastrointestinal system. : No signs and/or symptoms were reported regarding the genitourinary system. EENT: No signs and/or symptoms were reported regarding the EENT system. Derm: Skin is pink, warm \T\ dry. Swelling noted to palmar aspect of proximal phalanx of right middle finger with scale-like rash to site noted, pt c/o mild pain and itching to site, no drainage noted at this time. Musculoskeletal: Range of motion: intact in all extremities. 13:25 Reassessment: Patient is alert, oriented x 3, equal unlabored respirations, skin aa5 warm/dry/pink. Vital Signs: 12:27 Weight 111.13 kg; Height 5 ft. 5 in. (165.10 cm); Pain 4/10; sg 12:27 Pulse 87; Resp 18; Pulse Ox 99% on R/A; sg 12:30 BP 108 / 59; sg 12:27 Body Mass Index 40.77 (111.13 kg, 165.10 cm) ED Course: 12:11 Patient arrived in ED. as 12:28 Arm band placed on. EKG completed in triage. Results shown to MD. EKG completed in sg triage. Results shown to MD. 12:30 Triage completed. sg 12:38 Chaya Engle, RN is Primary Nurse. aa5 12:40 Patient has correct armband on for positive identification. aa5 12:51 [facility]ilpi N[facility] F[facility]-C [facility]. kb 12:51 Trip Baird MD is Attending Physician. kb 13:26 No provider procedures requiring assistance completed. Patient did not have IV access aa5 during this emergency room visit. Administered Medications: 13:10 Drug: Bactrim (160 mg-800 mg (DS) 1 tablet Route: PO; aa5 13:26 Follow up: Response: No adverse reaction aa5 Outcome: 13:12 Discharge ordered by MD. thompson 13:25 Discharged to home ambulatory, with significant other. aa5 13:25 Condition: stable 13:25 Discharge instructions given to patient, Instructed on discharge instructions, follow up and referral plans. medication usage, Demonstrated understanding of instructions, follow-up care, medications, Prescriptions given X 1. 13:26 Patient left the ED. aa5 Signatures: Shilpi Nuno, RULING MACHINE FEEDER-C RULING MACHINE FEEDER-Grzegorz Stovall RN RN Cristina Eckert Audri, RN RN aa5 Corrections: (The following items were deleted from the chart) 12:30 12:28 Presenting complaint: Patient states: Swelling and drainage to the right index sg finger, reports having itching and drainagint sg
--- NOTE | 2019-01-30 13:14 | EDPHYS ---
Physician Documentation [facility] Name: Margaret To Age: 24 yrs Sex: Female : 1995 Arrival Date: 01/30/2019 Time: 12:11 Bed 12 Private MD: ED Physician Trip Baird HPI: 01/30 13:10 This 24 yrs old Female presents to ER via Ambulatory with complaints of Finger kb Problem. 13:10 the patient presents with a swollen area of the palmar aspect of proximal phalanx of kb right middle finger. Description: swollen. Onset: The symptoms/episode began/occurred 15 day(s) ago. Possible cause(s): unknown. Associated signs and symptoms: Pertinent positives: swelling, itching. Modifying factors: the symptoms are alleviated by nothing, the symptoms are aggravated by nothing. Severity of symptoms: At their worst the symptoms were moderate, in the emergency department the symptoms are unchanged. The patient has not experienced similar symptoms in the past. The patient has not recently seen a physician. 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 - Social history:: Smoking status: Patient/guardian denies using tobacco. - Ebola Screening: : Patient negative for fever greater than or equal to 101.5 degrees Fahrenheit, and additional compatible Ebola Virus Disease symptoms Patient denies exposure to infectious person Patient denies travel to an Ebola-affected area in the 21 days before illness onset No symptoms or risks identified at this time. ROS: 13:07 Constitutional: Negative for fever, chills, and weight loss, ENT: Negative for injury, kb pain, and discharge, Neck: Negative for injury, pain, and swelling, Cardiovascular: Negative for chest pain, palpitations, and edema, Respiratory: Negative for shortness of breath, cough, wheezing, and pleuritic chest pain, Abdomen/GI: Negative for abdominal pain, nausea, vomiting, diarrhea, and constipation, MS/Extremity: Negative for injury and deformity, Neuro: Negative for headache, weakness, numbness, tingling, and seizure. 13:07 Skin: Positive for swelling, of the palmar aspect of proximal phalanx of right middle finger, scaly skin. Exam: 13:07 Constitutional: This is a well developed, well nourished patient who is awake, alert, kb and in no acute distress. Head/Face: Normocephalic, atraumatic. Neck: Trachea midline, no thyromegaly or masses palpated, and no cervical lymphadenopathy. Supple, full range of motion without nuchal rigidity, or vertebral point tenderness. No Meningismus. Chest/axilla: Normal chest wall appearance and motion. Nontender with no deformity. No lesions are appreciated. Cardiovascular: Regular rate and rhythm with a normal S1 and S2. No gallops, murmurs, or rubs. Normal PMI, no JVD. No pulse deficits. Respiratory: Lungs have equal breath sounds bilaterally, clear to auscultation and percussion. No rales, rhonchi or wheezes noted. No increased work of breathing, no retractions or nasal flaring. Abdomen/GI: Soft, non-tender, with normal bowel sounds. No distension or tympany. No guarding or rebound. No evidence of tenderness throughout. Back: No spinal tenderness. No costovertebral tenderness. Full range of motion. MS/ Extremity: Pulses equal, no cyanosis. Neurovascular intact. Full, normal range of motion. Neuro: Awake and alert, GCS 15, oriented to person, place, time, and situation. Cranial nerves II-XII grossly intact. Motor strength 5/5 in all extremities. Sensory grossly intact. Cerebellar exam normal. Normal gait. 13:07 Skin: swelling, scaly skin noted to base of right middle finger. Vital Signs: 12:27 Weight 111.13 kg; Height 5 ft. 5 in. (165.10 cm); Pain 4/10; sg 12:27 Pulse 87; Resp 18; Pulse Ox 99% on R/A; sg 12:30 BP 108 / 59; sg 12:27 Body Mass Index 40.77 (111.13 kg, 165.10 cm) sg MDM: 12:51 Patient medically screened. kb 13:09 Data reviewed: vital signs, nurses notes. Data interpreted: Pulse oximetry: on room air kb is 99 %. Interpretation: normal. Counseling: I had a detailed discussion with the patient and/or guardian regarding: the historical points, exam findings, and any diagnostic results supporting the discharge/admit diagnosis, the need for outpatient follow up, a family practitioner, to return to the emergency department if symptoms worsen or persist or if there are any questions or concerns that arise at home. Administered Medications: 13:10 Drug: Bactrim (160 mg-800 mg (DS) 1 tablet Route: PO; aa5 13:26 Follow up: Response: No adverse reaction aa5 Disposition: 01/30/19 13:12 Discharged to Home. Impression: Local infection of the skin and subcutaneous tissue, unspecified. - Condition is Stable. - Discharge Instructions: Wound Infection, [id number]. - Prescriptions for Bactrim DS 800- 160 mg Oral Tablet - take 1 tablet by ORAL route every 12 hours for 10 days; 20 tablet. - Medication Reconciliation Form, Thank You Letter, Antibiotic Education, Prescription Opioid Use form. - Follow up: Emergency Department; When: As needed; Reason: Worsening of condition. Follow up: Private Physician; When: 2 - 3 days; Reason: Recheck today's complaints, Continuance of care, Re-evaluation by your physician. Signatures: Shilpi Nuno, DIRECTOR CRAFT CENTER-C DIRECTOR CRAFT CENTER-CkGrzegorz Clifton, RN RN Chaya Ryan RN RN aa5 Corrections: (The following items were deleted from the chart) 13:26 13:12 01/30/2019 13:12 Discharged to Home. Impression: Local infection of the skin and aa5 subcutaneous tissue, unspecified. Condition is Stable. Forms are Medication Reconciliation Form, Thank You Letter, Antibiotic Education, Prescription Opioid Use. Follow up: Emergency Department; When: As needed; Reason: Worsening of condition. Follow up: Private Physician; When: 2 - 3 days; Reason: Recheck today's complaints, Continuance of care, Re-evaluation by your physician. kb
[2019-01-30 13:48] VITALS: BP 108/59
[2019-01-30 13:50] VITALS: O2SAT 99
== END 2019-01-30 13:26 | disposition home or self-care (01) ==
LOC: ER 12:09
DX: L08.9 Local infection of the skin and subcutaneous tissue, unspecified (principal); J45.909 Unspecified asthma, uncomplicated
CPT/HCPCS: 99283

== ENCOUNTER 2019-02-17 12:33 | Emergency (ER) | payer SELFPAY ==
--- NOTE | 2019-02-17 13:46 | EDPHYS ---
Physician Documentation [facility] Name: Margaret To Age: 24 yrs Sex: Female : 1995 Arrival Date: 02/17/2019 Time: 12:34 Bed 28 Private MD: ED Physician Luigi Bullock HPI: 02/17 13:40 This 24 yrs old Female presents to ER via Ambulatory with complaints of Finger jmm Problem. 13:40 Onset: The symptoms/episode began/occurred gradually, 2 month(s) ago. Modifying jmm factors: The symptoms are alleviated by nothing, the symptoms are aggravated by nothing. Associated signs and symptoms: Pertinent negatives: fever. This is a 24 year old female with a history of asthma that presents to the ED with complaints of itching to her hands for approx 2 months. Recently diagnosed with a fungal infection and began using Lamisil 1 day ago without relief. Denies fever. . 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 - Social history:: Smoking status: Patient/guardian denies using tobacco. - Ebola Screening: : No symptoms or risks identified at this time. ROS: 13:40 Constitutional: Negative for fever, chills, and weight loss, Cardiovascular: Negative jmm for chest pain, palpitations, and edema, Respiratory: Negative for shortness of breath, cough, wheezing, and pleuritic chest pain. 13:40 Skin: Positive for rash. 13:40 All other systems are negative. Exam: 13:40 Constitutional: This is a well developed, well nourished patient who is awake, alert, jmm and in no acute distress. Head/Face: atraumatic. Eyes: EOMI, no conjunctival erythema appreciated ENT: Moist Mucus Membranes Neck: Trachea midline, Supple Chest/axilla: Normal chest wall appearance and motion. Cardiovascular: Regular rate and rhythm. No edema appreciated Respiratory: Normal respirations, no respiratory distress appreciated Abdomen/GI: Non distended, soft Back: Normal ROM 13:40 Skin: papular lesions with erythema noted to the 2nd through 4th digits of the proximal phalanxes of the right hand. 13:40 Neuro: Orientation: is normal, Mentation: is normal, Memory: is normal. 13:40 Psych: Behavior/mood is pleasant, cooperative. Vital Signs: 13:05 BP 111 / 82; Pulse 81; Resp 18; Temp 97.7; Pulse Ox 98% ; Weight 111.13 kg; Height 5 bp ft. 5 in. (165.10 cm); 13:36 BP 125 / 84; Pulse 70; Resp 16 S; Pulse Ox 100% on R/A; ca1 13:05 Body Mass Index 40.77 (111.13 kg, 165.10 cm) bp MDM: 13:24 Patient medically screened. [facility] 13:40 Data reviewed: vital signs, nurses notes. [facility] 13:40 Counseling: I had a detailed discussion with the patient and/or guardian regarding: the [facility] historical points, exam findings, and any diagnostic results supporting the discharge/admit diagnosis, the need for outpatient follow up, to return to the emergency department if symptoms worsen or persist or if there are any questions or concerns that arise at home. ED course: Patient is alert and non toxic in appearance in the ED. Patient is advised to follow up with derm and otherwise given strict return precautions. Patient understood and agrees with the plan of care. . Administered Medications: No medications were administered Disposition: 02/18 06:23 Co-signature as Attending Physician, Luigi Bullock MD I agree with the assessment and [facility] plan of care. Disposition: 02/17/19 13:45 Discharged to Home. Impression: Dermatitis of Hand. - Condition is Stable. - Discharge Instructions: Cellulitis, Adult, Contact Dermatitis, Herpetic Jun. - Prescriptions for Cephalexin 500 mg Oral Capsule - take 1 capsule by ORAL route every 6 hours for 10 days; 40 capsule. Acyclovir 800 mg Oral Tablet - take 1 tablet by ORAL route 5 times per day for 10 days; 50 tablet. - Medication Reconciliation Form, Thank You Letter, Antibiotic Education, Prescription Opioid Use form. - Follow up: Private Physician; When: 2 - 3 days; Reason: Recheck today's complaints, Continuance of care, Re-evaluation by your physician. Signatures: Luigi Bullock MD MD cha Mickail, Joel, PA PA jmm Peltier, Brian, RN RN bp Nia Webster RN RN ca1 Corrections: (The following items were deleted from the chart) 02/17 14:06 13:45 02/17/2019 13:45 Discharged to Home. Impression: Dermatitis of Hand. Condition is ca1 Stable. Forms are Medication Reconciliation Form, Thank You Letter, Antibiotic Education, Prescription Opioid Use. Follow up: Private Physician; When: 2 - 3 days; Reason: Recheck today's complaints, Continuance of care, Re-evaluation by your physician. jen
--- NOTE | 2019-02-17 13:46 | ER ---
Nurse's Notes [facility] Name: Margaret To Age: 24 yrs Sex: Female : 1995 Arrival Date: 02/17/2019 Time: 12:34 Bed 28 Private MD: Diagnosis: Dermatitis of Hand Presentation: 02/17 13:04 Presenting complaint: Patient states: R 3RD FINGER FUNGAL INFECTION. Transition of bp care: patient was not received from another setting of care. Onset of symptoms is unknown. Risk Assessment: Do you want to hurt yourself or someone else? Patient reports no desire to harm self or others. Initial Sepsis Screen: Does the patient meet any 2 criteria? No. Patient's initial sepsis screen is negative. Does the patient have a suspected source of infection? No. Patient's initial sepsis screen is negative. Care prior to arrival: None. 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 - Social history:: Smoking status: Patient/guardian denies using tobacco. - Ebola Screening: : No symptoms or risks identified at this time. Screenin:36 Abuse screen: Denies threats or abuse. Denies injuries from another. Nutritional ca1 screening: No deficits noted. Tuberculosis screening: No symptoms or risk factors identified. Fall Risk None identified. Assessment: 13:36 General: Appears in no apparent distress. comfortable, Behavior is calm, cooperative, ca1 appropriate for age. Pain: Complains of pain in right hand Pain currently is 7 out of 10 on a pain scale. Pain began a month ago. Is continuous. Neuro: Level of Consciousness is awake, alert, obeys commands, Oriented to person, place, time, situation, Appropriate for age. Cardiovascular: Heart tones S1 S2 present Capillary refill < 3 seconds Patient's skin is warm and dry. Cardiovascular: Pulses are all present. Respiratory: Airway is patent Respiratory effort is even, unlabored, Respiratory pattern is regular, symmetrical, Breath sounds are clear bilaterally. GI: Abdomen is round non-distended, Bowel sounds present X 4 quads. Abd is soft and non tender X 4 quads. : No deficits noted. No signs and/or symptoms were reported regarding the genitourinary system. EENT: No deficits noted. No signs and/or symptoms were reported regarding the EENT system. Derm: Skin is intact, is healthy with good turgor, Skin is pink, warm \T\ dry. Rash noted that is on palmar aspect of middle phalanx of right ring finger, palmar aspect of proximal phalanx of right ring finger, palmar aspect of middle phalanx of right middle finger, palmar aspect of proximal phalanx of right middle finger, palmar aspect of middle phalanx of right index finger and palmar aspect of proxima; phalanx of right index finger skin is thickened and raised, Fingers swollen, color is brown, dry and warm to touch. Musculoskeletal: Circulation, motion, and sensation intact. Capillary refill < 3 seconds, Range of motion: intact in all extremities, Swelling present in palmar aspect of proximal phalanx of right ring finger and palmar aspect of proximal phalanx of right middle finger. Vital Signs: 13:05 BP 111 / 82; Pulse 81; Resp 18; Temp 97.7; Pulse Ox 98% ; Weight 111.13 kg; Height 5 bp ft. 5 in. (165.10 cm); 13:36 BP 125 / 84; Pulse 70; Resp 16 S; Pulse Ox 100% on R/A; ca1 13:05 Body Mass Index 40.77 (111.13 kg, 165.10 cm) bp ED Course: 12:34 Patient arrived in ED. as 13:04 Triage completed. bp 13:05 Arm band placed on. bp 13:24 Keith Singh PA is PHCP. jmm 13:24 Luigi Bullock MD is Attending Physician. jm 13:35 Nia Webster, JOSE is Primary Nurse. ca1 13:36 Patient has correct armband on for positive identification. Bed in low position. Call ca1 light in reach. Side rails up X 1. Pulse ox on. NIBP on. Warm blanket given. 13:36 No provider procedures requiring assistance completed. Patient did not have IV access ca1 during this emergency room visit. Administered Medications: No medications were administered Outcome: 13:45 Discharge ordered by MD. li 14:06 Discharged to home ambulatory, with family. ca1 14:06 Condition: stable 14:06 Discharge instructions given to patient, Instructed on discharge instructions, follow up and referral plans. medication usage, Demonstrated understanding of instructions, follow-up care, medications, Prescriptions given X 2. 14:06 Patient left the ED. ca1 Signatures: Keith Singh PA PA jmm Martinez, Amelia as Peltier, Brian, RN RN Nia Webster RN RN ca1
[2019-02-17 14:15] VITALS: TEMP 97.7
[2019-02-17 14:16] VITALS: BP 125/84; O2SAT 100
== END 2019-02-17 14:06 | disposition home or self-care (01) ==
LOC: ER 12:33
DX: L30.9 Dermatitis, unspecified (principal); J45.909 Unspecified asthma, uncomplicated
CPT/HCPCS: 99283

== ENCOUNTER 2019-03-22 09:05 | Emergency (ER) | payer SELFPAY ==
[2019-03-22] MEDS ORDERED: NYSTATIN 100MU/GM CREAM 15GM TOP ONE (09:54)
--- NOTE | 2019-03-22 09:57 | ER ---
Nurse's Notes [facility] Name: Margaret To Age: 24 yrs Sex: Female : 1995 Arrival Date: 03/22/2019 Time: 09:07 Bed DIS2 Private MD: Diagnosis: Dermatitis, unspecified;Candidiasis, unspecified Presentation: 03/22 09:16 Presenting complaint: Patient states: I have eczema on my hands, have been seen here la1 four times for it, its not too bad but it keeps me up at night. Transition of care: patient was not received from another setting of care. Onset of symptoms was March 22, 2019. Risk Assessment: Do you want to hurt yourself or someone else? Patient reports no desire to harm self or others. Initial Sepsis Screen: Does the patient meet any 2 criteria? No. Patient's initial sepsis screen is negative. Does the patient have a suspected source of infection? No. Patient's initial sepsis screen is negative. Care prior to arrival: None. 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 - Social history:: Smoking status: Patient/guardian denies using tobacco. - Ebola Screening: : No symptoms or risks identified at this time. - Family history:: not pertinent. Screenin:18 Abuse screen: Denies threats or abuse. Nutritional screening: No deficits noted. la1 Tuberculosis screening: No symptoms or risk factors identified. Fall Risk None identified. Assessment: 09:18 General: Appears in no apparent distress. Behavior is calm, cooperative. Pain: Denies la1 pain. Neuro: Level of Consciousness is awake, alert, obeys commands. Cardiovascular: Patient's skin is warm and dry. Respiratory: Airway is patent Respiratory effort is even, unlabored. GI: No signs and/or symptoms were reported involving the gastrointestinal system. : No signs and/or symptoms were reported regarding the genitourinary system. Derm: Rash noted that is on right hand and left hand eczema. Vital Signs: 09:17 BP 126 / 72; Pulse 74; Resp 16; Temp 98.5; Pulse Ox 100% on R/A; Weight 123.83 kg; la1 ED Course: 09:07 Patient arrived in ED. as 09:13 Luigi Bullock MD is Attending Physician. hannah 09:16 Kit Perales, RN is Primary Nurse. la1 09:17 Triage completed. la1 09:18 Arm band placed on right wrist. la1 09:19 Patient has correct armband on for positive identification. la1 09:19 No provider procedures requiring assistance completed. Patient did not have IV access la1 during this emergency room visit. 09:56 Bo Dallas MD is Referral Physician. [facility] Administered Medications: :56 Drug: Nystatin-Triamcinolone 1 application Route: Topical; Site: affected area; la1 Outcome: :56 Discharge ordered by . [facility] 10:03 Discharged to home ambulatory. la1 10:03 Condition: stable 10:03 Discharge instructions given to patient, Instructed on discharge instructions, follow up and referral plans. medication usage, Demonstrated understanding of instructions, follow-up care, medications, Prescriptions given X 2. 10:03 Patient left the ED. la1 Signatures: Luigi Bullock MD MD cha Martinez, Amelia as Kit Perales, RN RN la1
--- NOTE | 2019-03-22 09:57 | EDPHYS ---
Physician Documentation [facility] Name: Margaret To Age: 24 yrs Sex: Female : 1995 Arrival Date: 03/22/2019 Time: 09:07 Bed DIS2 Private MD: ED Physician Luigi Bullock HPI: 03/22 09:50 This 24 yrs old Female presents to ER via Ambulatory with complaints of Hand hannah Problem. 09:50 The patient or guardian reports a rash. The complaints affect the left hand diffusely, hannah right hand diffusely. Context: The problem was sustained at an unknown location. Onset: The symptoms/episode began/occurred 3 week(s) ago. Modifying factors: The symptoms are alleviated by nothing, the symptoms are aggravated by movement, dependent position. Associated signs and symptoms: The patient has no apparent associated signs or symptoms. Severity of symptoms: At their worst the symptoms were mild, moderate, in the emergency department the symptoms are actually worse, mildly. The patient has not experienced similar symptoms in the past. 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 - Social history:: Smoking status: Patient/guardian denies using tobacco. - Ebola Screening: : No symptoms or risks identified at this time. - Family history:: not pertinent. ROS: 09:50 Constitutional: Negative for fever, chills, and weight loss, Eyes: Negative for injury, hannah pain, redness, and discharge, ENT: Negative for injury, pain, and discharge, Neck: Negative for injury, pain, and swelling, Cardiovascular: Negative for chest pain, palpitations, and edema, Respiratory: Negative for shortness of breath, cough, wheezing, and pleuritic chest pain, Abdomen/GI: Negative for abdominal pain, nausea, vomiting, diarrhea, and constipation, Back: Negative for injury and pain, : Negative for injury, bleeding, discharge, and swelling, MS/Extremity: Negative for injury and deformity, Neuro: Negative for headache, weakness, numbness, tingling, and seizure, Psych: Negative for depression, anxiety, suicide ideation, homicidal ideation, and hallucinations, Allergy/Immunology: Negative for hives, rash, and allergies, Endocrine: Negative for neck swelling, polydipsia, polyuria, polyphagia, and marked weight changes, Hematologic/Lymphatic: Negative for swollen nodes, abnormal bleeding, and unusual bruising. 09:50 Skin: Positive for rash, of the right hand and left hand. Exam: 09:50 Constitutional: This is a well developed, well nourished patient who is awake, alert, hannah and in no acute distress. Head/Face: Normocephalic, atraumatic. Eyes: Pupils equal round and reactive to light, extra-ocular motions intact. Lids and lashes normal. Conjunctiva and sclera are non-icteric and not injected. Cornea within normal limits. Periorbital areas with no swelling, redness, or edema. ENT: Nares patent. No nasal discharge, no septal abnormalities noted. Tympanic membranes are normal and external auditory canals are clear. Oropharynx with no redness, swelling, or masses, exudates, or evidence of obstruction, uvula midline. Mucous membranes moist. Neck: Trachea midline, no thyromegaly or masses palpated, and no cervical lymphadenopathy. Supple, full range of motion without nuchal rigidity, or vertebral point tenderness. No Meningismus. Chest/axilla: Normal chest wall appearance and motion. Nontender with no deformity. No lesions are appreciated. Cardiovascular: Regular rate and rhythm with a normal S1 and S2. No gallops, murmurs, or rubs. Normal PMI, no JVD. No pulse deficits. Respiratory: Lungs have equal breath sounds bilaterally, clear to auscultation and percussion. No rales, rhonchi or wheezes noted. No increased work of breathing, no retractions or nasal flaring. Abdomen/GI: Soft, non-tender, with normal bowel sounds. No distension or tympany. No guarding or rebound. No evidence of tenderness throughout. Back: No spinal tenderness. No costovertebral tenderness. Full range of motion. MS/ Extremity: Pulses equal, no cyanosis. Neurovascular intact. Full, normal range of motion. Neuro: Awake and alert, GCS 15, oriented to person, place, time, and situation. Cranial nerves II-XII grossly intact. Motor strength 5/5 in all extremities. Sensory grossly intact. Cerebellar exam normal. Normal gait. Psych: Awake, alert, with orientation to person, place and time. Behavior, mood, and affect are within normal limits. 09:50 Skin: rash a mild rash is noted, rash can be described as erythematous, raised. [facility] Vital Signs: 09:17 BP 126 / 72; Pulse 74; Resp 16; Temp 98.5; Pulse Ox 100% on R/A; Weight 123.83 kg; la1 MDM: 09:13 Patient medically screened. [facility] 09:55 Data reviewed: vital signs, nurses notes. [facility] Administered Medications: 09:56 Drug: Nystatin-Triamcinolone 1 application Route: Topical; Site: affected area; la1 Disposition: 03/22/19 09:56 Discharged to Home. Impression: Dermatitis, unspecified, Candidiasis, unspecified. - Condition is Stable. - Discharge Instructions: Contact Dermatitis, Hand Dermatitis, Rash, Rash, [id number], Contact Dermatitis, Urmn-oi-[id number], Hand Dermatitis, [id number]. - Prescriptions for Keflex 500 mg Oral Capsule - take 1 capsule by ORAL route every 6 hours for 7 days; 28 capsule. Nystatin- Triamcinolone 100,000-0.1 unit/g-% Topical Cream - apply 1 application by TOPICAL route 2 times per day; 30 gram. - Medication Reconciliation Form, Thank You Letter, Antibiotic Education, Prescription Opioid Use form. - Follow up: Private Physician; When: 2 - 3 days; Reason: Recheck today's complaints, Continuance of care, Re-evaluation by your physician. Follow up: Bo Dallas MD; When: 2 - 3 days; Reason: Recheck today's complaints, Re-evaluation by your physician. - Problem is new. - Symptoms have improved. Signatures: Luigi Bullock MD MD cha Attema, Lee RN RN la1 Corrections: (The following items were deleted from the chart) 10:03 09:56 03/22/2019 09:56 Discharged to Home. Impression: Dermatitis, unspecified; la1 Candidiasis, unspecified. Condition is Stable. Forms are Medication Reconciliation Form, Thank You Letter, Antibiotic Education, Prescription Opioid Use. Follow up: Private Physician; When: 2 - 3 days; Reason: Recheck today's complaints, Continuance of care, Re-evaluation by your physician. Follow up: Bo Dallas; When: 2 - 3 days; Reason: Recheck today's complaints, Re-evaluation by your physician. Problem is new. Symptoms have improved. hannah
[2019-03-22 14:27] VITALS: BP 126/72; TEMP 98.5; O2SAT 100
== END 2019-03-22 10:03 | disposition home or self-care (01) ==
LOC: ER 09:05
DX: L30.9 Dermatitis, unspecified (principal); B37.9 Candidiasis, unspecified
CPT/HCPCS: 99283

== ENCOUNTER 2019-04-26 10:40 | Emergency (ER) | payer SELFPAY ==
--- NOTE | 2019-04-26 11:49 | ER ---
Nurse's Notes [facility] Name: Margaret To Age: 24 yrs Sex: Female : 1995 Arrival Date: 04/26/2019 Time: 10:43 Bed 16 Private MD: Diagnosis: Focal hyperhidrosis;Dermatitis, unspecified;Acute bronchitis;Otitis media, unspecified, right ear Presentation: 04/26 10:55 Presenting complaint: Patient states: "Im having shortness of breath and I have this aj1 rash on my hands, I've had it now for 3 or 4 months. I came her last time and they gave me a cream but it hasn't been helping at all" Reports SOB started last night. Also reports nasal congestion. Denies cough, denies fever. Transition of care: patient was not received from another setting of care. Onset of symptoms was 2018. Risk Assessment: Do you want to hurt yourself or someone else? Patient reports no desire to harm self or others. Initial Sepsis Screen: Does the patient meet any 2 criteria? No. Patient's initial sepsis screen is negative. Does the patient have a suspected source of infection? No. Patient's initial sepsis screen is negative. Care prior to arrival: None. 10:55 Method Of Arrival: Ambulatory aj1 10:55 Acuity: OTILIA 4 aj1 Triage Assessment: 10:56 General: Appears in no apparent distress. comfortable, Behavior is calm, cooperative, aj1 appropriate for age. Pain: Pain currently is 5 out of 10 on a pain scale. Neuro: Level of Consciousness is awake, alert, obeys commands. Cardiovascular: Patient's skin is warm and dry. Respiratory: Reports shortness of breath on exertion. Respiratory: Airway is patent Respiratory effort is even, unlabored, Respiratory pattern is regular, symmetrical, Onset: The symptoms/episode began/occurred yesterday. 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 - Social history:: Smoking status: Patient/guardian denies using tobacco. - Ebola Screening: : Patient denies travel to an Ebola-affected area in the 21 days before illness onset. Screenin:40 Abuse screen: Denies threats or abuse. Denies injuries from another. Nutritional sg screening: No deficits noted. Tuberculosis screening: No symptoms or risk factors identified. Never had TB. Fall Risk None identified. Assessment: 11:00 General: Appears in no apparent distress. well groomed, well developed, well nourished, sg Behavior is calm, cooperative, appropriate for age. Pain: Denies pain. Neuro: Level of Consciousness is awake, alert, obeys commands, Oriented to person, place, time, Supervisor Fur Dressing are equal bilaterally Speech is normal, Facial symmetry appears normal. Cardiovascular: Patient's skin is warm and dry. Cardiovascular: Denies chest pain, Heart tones S1 S2 present Chest pain is denied. Respiratory: Reports shortness of breath at rest Airway is patent Respiratory effort is even, unlabored, Respiratory pattern is regular, symmetrical, Breath sounds are clear bilaterally. GI: Abdomen is round non-distended, Reports tolerance of fluids, tolerance of food. : No signs and/or symptoms were reported regarding the genitourinary system. EENT: No signs and/or symptoms were reported regarding the EENT system. Derm: Skin is pink, warm \\T\\ dry. Musculoskeletal: Circulation, motion, and sensation intact. Range of motion: intact in all extremities. Vital Signs: 10:56 BP 129 / 83; Pulse 91; Resp 18; Temp 97.9; Pulse Ox 97% on R/A; Weight 117.93 kg (R); aj1 Height 5 ft. 5 in. (165.10 cm) (R); Pain 5/10; 10:56 Body Mass Index 43.27 (117.93 kg, 165.10 cm) aj1 ED Course: 10:43 Patient arrived in ED. mr 10:56 Triage completed. aj1 10:56 Arm band placed on Patient placed in an exam room. aj1 10:59 Alysa Carrasco FNP-C is PHCP. snw 11:00 Juana Bhat MD is Attending Physician. snw 11:00 No provider procedures requiring assistance completed. Patient did not have IV access sg during this emergency room visit. 11:15 Patient has correct armband on for positive identification. Bed in low position. Call sg light in reach. Side rails up X2. Pulse ox on. NIBP on. Warm blanket given. Head of bed elevated. 11:26 Grzegorz Patel, RN is Primary Nurse. sg Administered Medications: 12:00 Drug: predniSONE 40 mg Route: PO; sg 12:00 Drug: Pepcid 20 mg Route: PO; sg 12:00 Drug: Albuterol 2.5 mg Route: Inhalation; sg 12:06 Drug: Augmentin 875 mg Route: PO; sg Outcome: 11:49 Discharge ordered by . sonja 12:12 Discharged to home ambulatory. sg 12:12 Condition: good 12:12 Discharge instructions given to patient, Instructed on discharge instructions, follow up and referral plans. safety practices, Demonstrated understanding of instructions, follow-up care, medications, Prescriptions given X 2. 12:16 Patient left the ED. Signatures: Lauren Schulz RN RN aj1 Grzegorz Patel RN RN sg Alysa Carrasco, ENGINEERING PROGRAM ANALYST-C ENGINEERING PROGRAM ANALYST-Csnw Juana Love mr
--- NOTE | 2019-04-26 11:50 | EDPHYS ---
Physician Documentation [facility] Name: Margaret To Age: 24 yrs Sex: Female : 1995 Arrival Date: 04/26/2019 Time: 10:43 Bed 16 Private MD: ED Physician Juana Bhat HPI: 04/26 12:06 This 24 yrs old Female presents to ER via Ambulatory with complaints of snw Shortness Of Breath, Skin Problem. 12:06 The patient has shortness of breath at rest. Onset: The symptoms/episode began/occurred snw gradually, 3 day(s) ago, and became persistent. Duration: The symptoms are continuous. Associated signs and symptoms: Pertinent positives: non-productive cough, rash to hands worsening post one tube nystatin. Severity of symptoms: At their worst the symptoms were moderate severe in the emergency department the symptoms are unchanged. The patient has experienced similar episodes in the past. It is unknown whether or not the patient has recently seen a physician. 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 - Social history:: Smoking status: Patient/guardian denies using tobacco. - Ebola Screening: : Patient denies travel to an Ebola-affected area in the 21 days before illness onset. ROS: 12:05 Eyes: Negative for injury, pain, redness, and discharge. snw 12:05 Neck: Negative for injury, pain, and swelling, Cardiovascular: Negative for chest pain, palpitations, and edema. 12:05 Abdomen/GI: Negative for abdominal pain, nausea, vomiting, diarrhea, and constipation, Back: Negative for injury and pain, : Negative for injury, bleeding, discharge, and swelling, MS/Extremity: Negative for injury and deformity, Neuro: Negative for headache, weakness, numbness, tingling, and seizure, Psych: Negative for depression, anxiety, suicide ideation, homicidal ideation, and hallucinations. 12:05 Constitutional: Positive for fatigue, malaise. 12:05 ENT: Positive for sinus congestion, sore throat. 12:05 Respiratory: Positive for cough, shortness of breath. 12:05 Skin: Positive for rash, of the right hand and left hand. Exam: 12:03 Head/Face: Normocephalic, atraumatic. Eyes: Pupils equal round and reactive to light, snw extra-ocular motions intact. Lids and lashes normal. Conjunctiva and sclera are non-icteric and not injected. Cornea within normal limits. Periorbital areas with no swelling, redness, or edema. 12:03 Neck: Trachea midline, no thyromegaly or masses palpated, and no cervical lymphadenopathy. Supple, full range of motion without nuchal rigidity, or vertebral point tenderness. No Meningismus. Chest/axilla: Normal chest wall appearance and motion. Nontender with no deformity. No lesions are appreciated. Cardiovascular: Regular rate and rhythm with a normal S1 and S2. No gallops, murmurs, or rubs. Normal PMI, no JVD. No pulse deficits. 12:03 Abdomen/GI: Soft, non-tender, with normal bowel sounds. No distension or tympany. No guarding or rebound. No evidence of tenderness throughout. Back: No spinal tenderness. No costovertebral tenderness. Full range of motion. Skin: Warm, dry with normal turgor. Normal color with no rashes, no lesions, and no evidence of cellulitis. MS/ Extremity: Pulses equal, no cyanosis. Neurovascular intact. Full, normal range of motion. Neuro: Awake and alert, GCS 15, oriented to person, place, time, and situation. Cranial nerves II-XII grossly intact. Motor strength 5/5 in all extremities. Sensory grossly intact. Cerebellar exam normal. Normal gait. Psych: Awake, alert, with orientation to person, place and time. Behavior, mood, and affect are within normal limits. 12:03 Constitutional: The patient appears alert, awake. 12:03 ENT: TM's: erythema, that is moderate, on the right, Examination of the other ear shows no obvious abnormality, Nose: Nasal mucosa: edematous, Mouth: is normal, Posterior pharynx: erythema, that is moderate, Voice: is hoarse. 12:03 Respiratory: the patient does not display signs of respiratory distress, Respirations: normal, Breath sounds: wheezing: expiratory that is moderate, is heard diffusely. Vital Signs: 10:56 BP 129 / 83; Pulse 91; Resp 18; Temp 97.9; Pulse Ox 97% on R/A; Weight 117.93 kg (R); aj1 Height 5 ft. 5 in. (165.10 cm) (R); Pain 5/10; 10:56 Body Mass Index 43.27 (117.93 kg, 165.10 cm) aj1 MDM: 11:20 Patient medically screened. snw 12:05 Data reviewed: vital signs, nurses notes. Data interpreted: Pulse oximetry: on room air snw is 97 %. Interpretation: acceptable. Counseling: I had a detailed discussion with the patient and/or guardian regarding: the historical points, exam findings, and any diagnostic results supporting the discharge/admit diagnosis, the presence of at least one elevated blood pressure reading (>120/80) during this emergency department visit, the need for outpatient follow up, to return to the emergency department if symptoms worsen or persist or if there are any questions or concerns that arise at home. Special discussion: I have referred the patient to see his PCP for further evaluation of high blood pressure. I discussed in detail with the patient the higher chance of wound infection based on his presenting history. Based on the history and exam findings, there is no indication for further emergent testing or inpatient evaluation. I discussed with the patient/guardian the need to see the cotton washer for further evaluation of the symptoms. I discussed with the patient/guardian the need to see the primary care provider for further evaluation of the symptoms. Administered Medications: 12:00 Drug: predniSONE 40 mg Route: PO; sg 12:00 Drug: Pepcid 20 mg Route: PO; sg 12:00 Drug: Albuterol 2.5 mg Route: Inhalation; sg 12:06 Drug: Augmentin 875 mg Route: PO; sg Disposition: 16:14 Co-signature as Attending Physician, Juana Bhat MD. ma2 Disposition: 04/26/19 11:49 Discharged to Home. Impression: Focal hyperhidrosis, Dermatitis, unspecified, Acute bronchitis, Otitis media, unspecified, right ear. - Condition is Stable. - Discharge Instructions: Acute Bronchitis, Adult, Contact Dermatitis, Otitis Media, Adult, Fever, Adult, Hand Dermatitis, Rash, Cough, Adult, Rehydration, Adult. - Prescriptions for Augmentin 500- 125 mg Oral Tablet - take 1 tablet by ORAL route every 8 hours for 10 days; 30 tablet. Prednisone 20 mg Oral Tablet - take 2 tablet by ORAL route once daily for 5 days; 10 tablet. Albuterol Sulfate 90 mcg/actuation - inhale 1-2 puff by INHALATION route every 4-6 hours; 1 Inhaler. Pepcid 20 mg Oral Tablet - take 1 tablet by ORAL route once daily for 10 days; 10 tablet. - Work release form, Medication Reconciliation Form, Thank You Letter, Antibiotic Education, Prescription Opioid Use form. - Follow up: Private Physician; When: 2 - 3 days; Reason: Recheck today's complaints, Continuance of care, Re-evaluation by your physician. Follow up: Emergency Department; When: As needed; Reason: Worsening of condition. Signatures: Lauren Schulz RN RN aj1 Grzegorz Patel RN RN sg Alysa Carrasco, BROADCAST FIELD SUPERVISOR-C BROADCAST FIELD SUPERVISOR-Csnw Juana Bhat MD MD ma2 Corrections: (The following items were deleted from the chart) 12:16 11:49 04/26/2019 11:49 Discharged to Home. Impression: Focal hyperhidrosis; Dermatitis, sg unspecified; Acute bronchitis; Otitis media, unspecified, right ear. Condition is Stable. Forms are Medication Reconciliation Form, Thank You Letter, Antibiotic Education, Prescription Opioid Use. Follow up: Private Physician; When: 2 - 3 days; Reason: Recheck today's complaints, Continuance of care, Re-evaluation by your physician. Follow up: Emergency Department; When: As needed; Reason: Worsening of condition. snw
[2019-04-26] MEDS ORDERED: AMOX/K CLAV 875 MG TAB ONE (12:03)
[2019-04-26] MEDS ORDERED: FAMOTIDINE 20 MG TAB ONE (12:03)
[2019-04-26] MEDS ORDERED: ALBUTEROL 2.5 MG/3 ML NEB SOL ONE (12:03)
[2019-04-26] MEDS ORDERED: predniSONE 20 MG TAB ONE (12:03)
[2019-04-26 17:31] VITALS: BP 129/83; TEMP 97.9; O2SAT 97
== END 2019-04-26 12:16 | disposition home or self-care (01) ==
LOC: ER 10:40
DX: J20.9 Acute bronchitis, unspecified (principal); H66.91 Otitis media, unspecified, right ear; L30.9 Dermatitis, unspecified; L74.519 Primary focal hyperhidrosis, unspecified; J45.909 Unspecified asthma, uncomplicated
CPT/HCPCS: 99284; J7512

== ENCOUNTER 2020-01-03 20:28 | Emergency (ER) | payer SELFPAY ==
[2020-01-03] MEDS ORDERED: ONDANSETRON 4 MG/2 ML VIAL ONE (22:29)
[2020-01-03] MEDS ORDERED: NA CHLORIDE 0.9% 1,000 ML ONE (22:29)
[2020-01-03] MEDS ORDERED: MORPHINE 4 MG/ML SYR ONE (22:29)
[2020-01-03 22:33] LABS: Absolute Lymphocytes (CBC) 2.1 K/uL (0.7-4.9); Basophils % 0.5 % (0-1.3); Hematocrit 38.1 % (36.0-45.0); Lymphocytes % 31.1 % (15.3-44.8); RBC Red Blood Cell Count 4.49 M/uL (3.86-4.86)
[2020-01-03 22:38] LABS: ALT/SGPT 18 U/L (12-78); AST/SGOT 10 U/L (15-37); Albumin 3.2 g/dL (3.4-5.0); Alkaline Phosphatase 99 U/L (45-117); BUN Blood Urea Nitrogen 14 mg/dL (7-18); Bicarbonate 25 mmol/L (21-32); Bilirubin Direct < 0.1 mg/dL (0-0.2); Bilirubin Total 0.1 mg/dL (0.2-1.0); Glucose Level 98 mg/dL (74-106); Lipase 97 U/L (73-393); Potassium 3.7 mmol/L (3.5-5.1); Protein, Total 7.2 g/dL (6.4-8.2); Sodium Level 141 mmol/L (136-145)
[2020-01-03 22:39] LABS: Urine Blood NEGATIVE (NEG); Urine Glucose NEGATIVE (NEG); Urine Protein NEGATIVE (NEG); Urine Specific Gravity >1.030 (1.005-1.030); Urine pH 6.5 (5.0-7.0)
--- NOTE | 2020-01-04 00:34 | EDPHYS ---
Physician Documentation [facility] Name: Margaret To Age: 24 yrs Sex: Female : 1995 Arrival Date: 01/03/2020 Time: 20:31 Bed 15 Private MD: ED Physician Chi Joyner HPI: 01/02 22:28 This 24 yrs old Female presents to ER via Ambulatory with complaints of Back mh7 Pain. 22:28 The patient complains of pain in the right flank. The pain does not radiate. Onset: The mh7 symptoms/episode began/occurred yesterday. Modifying factors: The symptoms are alleviated by nothing. the symptoms are aggravated by movement, palpation/percussion. Associated signs and symptoms: Pertinent negatives: diarrhea, dizziness, dysuria, fever, urinary frequency, headache, hematuria, nausea, pain radiating to the lower extremities, vomiting. Severity of pain: At its worst the pain was moderate today, in the emergency department the pain is unchanged. 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 - Social history:: Smoking status: Patient denies any tobacco usage or history of. ROS: 22:28 Constitutional: Negative for fever, chills, and weight loss, Eyes: Negative for injury, mh7 pain, redness, and discharge, ENT: Negative for injury, pain, and discharge, Neck: Negative for injury, pain, and swelling, Cardiovascular: Negative for chest pain, palpitations, and edema, Respiratory: Negative for shortness of breath, cough, wheezing, and pleuritic chest pain, Abdomen/GI: Negative for abdominal pain, nausea, vomiting, diarrhea, and constipation, : Negative for injury, bleeding, discharge, and swelling, MS/Extremity: Negative for injury and deformity, Skin: Negative for injury, rash, and discoloration, Neuro: Negative for headache, weakness, numbness, tingling, and seizure, Psych: Negative for depression, anxiety, suicide ideation, homicidal ideation, and hallucinations, Allergy/Immunology: Negative for hives, rash, and allergies, Endocrine: Negative for neck swelling, polydipsia, polyuria, polyphagia, and marked weight changes, Hematologic/Lymphatic: Negative for swollen nodes, abnormal bleeding, and unusual bruising. Exam: 22:28 Head/Face: Normocephalic, atraumatic. Eyes: Pupils equal round and reactive to light, mh7 extra-ocular motions intact. Lids and lashes normal. Conjunctiva and sclera are non-icteric and not injected. Cornea within normal limits. Periorbital areas with no swelling, redness, or edema. Neck: Trachea midline, no thyromegaly or masses palpated, and no cervical lymphadenopathy. Supple, full range of motion without nuchal rigidity, or vertebral point tenderness. No Meningismus. Chest/axilla: Normal chest wall appearance and motion. Nontender with no deformity. No lesions are appreciated. Cardiovascular: Regular rate and rhythm with a normal S1 and S2. No gallops, murmurs, or rubs. Normal PMI, no JVD. No pulse deficits. Respiratory: Lungs have equal breath sounds bilaterally, clear to auscultation and percussion. No rales, rhonchi or wheezes noted. No increased work of breathing, no retractions or nasal flaring. 22:28 Skin: Warm, dry with normal turgor. Normal color with no rashes, no lesions, and no evidence of cellulitis. MS/ Extremity: Pulses equal, no cyanosis. Neurovascular intact. Full, normal range of motion. Neuro: Awake and alert, GCS 15, oriented to person, place, time, and situation. Cranial nerves II-XII grossly intact. Motor strength 5/5 in all extremities. Sensory grossly intact. Cerebellar exam normal. Normal gait. Psych: Awake, alert, with orientation to person, place and time. Behavior, mood, and affect are within normal limits. 22:28 Constitutional: The patient appears in no acute distress, alert, awake, uncomfortable. 22:28 Abdomen/GI: Inspection: abdomen appears normal, Bowel sounds: normal, in all quadrants, Palpation: abdomen is soft and non-tender, in all quadrants, Rectal exam: the exam is deferred, because of patient request, Indicators: McBurney's point is not tender, Moreno's sign is negative, Rovsing's sign is negative, Obturator sign is negative, Psoas sign is negative, Liver: no appreciated palpable abnormalities, Hernia: not appreciated. 22:28 Back: pain, is absent, ROM is normal, normal spinal alignment noted, CVA tenderness, that is moderate, is noted on the right, muscle spasm, is not present, Straight leg raises: of both lower extremities does not illicit pain. Vital Signs: 21:03 BP 119 / 75; Pulse 70; Resp 24; Temp 97.4; Pulse Ox 97% on R/A; Weight 123.83 kg; vc Height 5 ft. 6 in. (167.64 cm); Pain 7/10; 21:51 BP 144 / 115; Pulse 68; Resp 22; Pulse Ox 100% on R/A; vc 21:55 BP 111 / 66; Pulse 66; Resp 20; Pulse Ox 99% on R/A; vc 23:15 BP 115 / 77; Pulse 55; Resp 20; Pulse Ox 100% on R/A; Pain 5/10; vc 01/03 00:15 BP 115 / 73; Pulse 55; Resp 18; Pulse Ox 100% on R/A; Pain 3/10; vc 01/02 21:03 Body Mass Index 44.06 (123.83 kg, 167.64 cm) vc MDM: 01/02 21:57 Patient medically screened. [facility] 01/03 00:31 Differential diagnosis: nephrolithiasis, pyelonephritis, UTI. Data reviewed: vital [facility] signs, nurses notes, lab test result(s), CBC, electrolytes, urinalysis, radiologic studies, CT scan. Data interpreted: Pulse oximetry: on room air is 100 %. Interpretation: normal. Counseling: I had a detailed discussion with the patient and/or guardian regarding: the historical points, exam findings, and any diagnostic results supporting the discharge/admit diagnosis, lab results, radiology results, the need for outpatient follow up, to return to the emergency department if symptoms worsen or persist or if there are any questions or concerns that arise at home. Response to treatment: the patient's symptoms have resolved after treatment, the patient's blood pressure is in an acceptable range, mental status has returned to baseline, the patient no longer shows bradycardia, the patient is not short of breath, the patient is not tachycardic, the patient's pain is gone, the patient's temperature has normalized. 01/02 21:57 Order name: Basic Metabolic Panel; Complete Time: 23:22 [facility] 01/02 21:57 Order name: CBC with Diff; Complete Time: 23:22 [facility] 01/02 21:57 Order name: Hepatic Function; Complete Time: 23:22 [facility] 01/02 21:57 Order name: Lipase; Complete Time: 23:22 [facility] 01/02 22:36 Order name: Urine Dipstick--Ancillary (enter results); Complete Time: 23:22 [facility] 01/02 22:36 Order name: Urine --Ancillary (enter results); Complete Time: 23:22 [facility] 01/02 21:57 Order name: IV Saline Lock; Complete Time: 22:42 [facility] 01/02 21:57 Order name: Labs collected and sent; Complete Time: 22:42 [facility] 01/02 21:57 Order name: Urine Dipstick-Ancillary (obtain specimen); Complete Time: 22:34 [facility] 01/02 22:29 Order name: Stone Protocol [facility] 01/02 21:57 Order name: Urine Test (obtain specimen); Complete Time: 22:34 7 Administered Medications: 01/02 22:30 Drug: NS 0.9% 1000 ml Route: IV; Rate: 1000 ml; Site: right antecubital; 01/03 00:00 Follow up: IV Status: Completed infusion; IV Intake: 1000ml 01/02 22:30 Drug: morphine 4 mg Route: IVP; Site: right antecubital; vc 01/03 00:00 Follow up: Response: No adverse reaction; Pain is decreased 01/02 22:30 Drug: Zofran (Ondansetron) 4 mg Route: IVP; Site: right antecubital; 01/03 00:00 Follow up: Response: No adverse reaction Disposition: 07:02 Co-signature as Attending Physician, Chi Joyner MD. [facility] Disposition: 01/04/20 00:34 Discharged to Home. Impression: Flank Pain, Ovarian Dermoid. - Condition is Stable. - Discharge Instructions: Ovarian Cyst, [id number], Flank Pain, [id number]. - Prescriptions for Tramadol 50 mg Oral Tablet - take 1 tablet by ORAL route every 8 hours as needed; 12 tablet. - Medication Reconciliation Form, Thank You Letter, Antibiotic Education, Prescription Opioid Use form. - Follow up: Private Physician; When: 1 - 2 days; Reason: Worsening of condition, Recheck today's complaints, Continuance of care, Re-evaluation by your physician. Follow up: Keyla Son MD; When: 1 - 2 days; Reason: Worsening of condition, Further diagnostic work-up. - Problem is new. - Symptoms have improved. Signatures: Dispatcher [employer] [facility] Sharri Ruth RN RN vc Chi Joyner MD MD mh7 Corrections: (The following items were deleted from the chart) 01/02 22:29 21:57 Abdomen Pelvis Wo Con+CT.RAD.BRZ ordered. [facility] 01/03 01:01 00:34 01/04/2020 00:34 Discharged to Home. Impression: Flank Pain; Ovarian Dermoid. vc Condition is Stable. Forms are Medication Reconciliation Form, Thank You Letter, Antibiotic Education, Prescription Opioid Use. Follow up: Private Physician; When: 1 - 2 days; Reason: Worsening of condition, Recheck today's complaints, Continuance of care, Re-evaluation by your physician. Follow up: Keyla Son; When: 1 - 2 days; Reason: Worsening of condition, Further diagnostic work-up. Problem is new. Symptoms have improved. mh7
--- NOTE | 2020-01-04 00:34 | ER ---
Nurse's Notes [facility] Name: Margaret To Age: 24 yrs Sex: Female : 1995 Arrival Date: 01/03/2020 Time: 20:31 Bed 15 Private MD: Diagnosis: Flank Pain;Ovarian Dermoid Presentation: 01/02 21:03 Chief complaint: Patient states: "I started having back pain last night but I thought vc it may be gas, today the pain got worse, it hurts when I bend over or take deep breaths." Patient rates pain to right side of back a /10. Coronavirus screen: Client denies travel out of the [place] in the last 14 days. At this time, the client does not indicate any symptoms associated with coronavirus-19. Ebola Screen: No symptoms or risks identified at this time. Initial Sepsis Screen: Does the patient meet any 2 criteria? RR > 20 per min. No. Patient's initial sepsis screen is negative. Does the patient have a suspected source of infection? No. Patient's initial sepsis screen is negative. Risk Assessment: Do you want to hurt yourself or someone else? Patient reports no desire to harm self or others. Onset of symptoms was January 02, 2020. 21:03 Method Of Arrival: Ambulatory vc 21:03 Acuity: OTILIA 4 vc Triage Assessment: 21:44 General: Appears in no apparent distress. Behavior is calm, cooperative, appropriate vc for age. Pain: Complains of pain in right side of upper and lower back Pain does not radiate. Pain currently is 7 out of 10 on a pain scale. Quality of pain is described as sharp, shooting, stabbing, Pain began gradually, Is continuous. Musculoskeletal: Circulation, motion, and sensation intact. Range of motion: intact in all extremities, Tenderness present in right mid back and right low back Reports pain in right mid back and right low back. 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 - Social history:: Smoking status: Patient denies any tobacco usage or history of. Screenin:44 Abuse screen: Denies threats or abuse. Nutritional screening: No deficits noted. vc Tuberculosis screening: No symptoms or risk factors identified. Fall Risk None identified. Assessment: 21:46 General: Appears in no apparent distress. uncomfortable, Behavior is calm, cooperative, vc appropriate for age. Neuro: Level of Consciousness is awake, alert, obeys commands, Oriented to person, place, time, situation, Appropriate for age. Cardiovascular: Capillary refill < 3 seconds Patient's skin is warm and dry. Respiratory: Airway is patent Respiratory effort is even, shallow, Respiratory pattern is tachypnea. GI: No signs and/or symptoms were reported involving the gastrointestinal system. : No signs and/or symptoms were reported regarding the genitourinary system. EENT: No deficits noted. Derm: Skin is intact, is healthy with good turgor, Skin temperature is warm. Musculoskeletal: Circulation, motion, and sensation intact. Range of motion: intact in all extremities, Tenderness present in right low back and right mid back Reports pain in right low back and right mid back. 22:45 Reassessment: Patient and/or family updated on plan of care and expected duration. Pain vc level reassessed. Patient is alert, oriented x 3, equal unlabored respirations, skin warm/dry/pink. Patient states symptoms have improved. 23:15 Reassessment: Patient states the pain is still there but it is decreased. Respirations vc even and unlabored. No complaints at this time. 01/03 00:15 Reassessment: Patient and/or family updated on plan of care and expected duration. Pain vc level reassessed. Patient is alert, oriented x 3, equal unlabored respirations, skin warm/dry/pink. Patient states feeling better. Patient states symptoms have improved. Vital Signs: 01/02 21:03 BP 119 / 75; Pulse 70; Resp 24; Temp 97.4; Pulse Ox 97% on R/A; Weight 123.83 kg; vc Height 5 ft. 6 in. (167.64 cm); Pain 7/10; 21:51 BP 144 / 115; Pulse 68; Resp 22; Pulse Ox 100% on R/A; vc 21:55 BP 111 / 66; Pulse 66; Resp 20; Pulse Ox 99% on R/A; vc 23:15 BP 115 / 77; Pulse 55; Resp 20; Pulse Ox 100% on R/A; Pain 5/10; vc 01/03 00:15 BP 115 / 73; Pulse 55; Resp 18; Pulse Ox 100% on R/A; Pain 3/10; vc 01/02 21:03 Body Mass Index 44.06 (123.83 kg, 167.64 cm) vc ED Course: 01/02 20:31 Patient arrived in ED. cf2 21:06 Triage completed. vc 21:35 Chi Joyner MD is Attending Physician. 7 21:44 Sharri Ruth, JOSE is Primary Nurse. vc 21:46 Arm band placed on. vc 21:46 Patient has correct armband on for positive identification. Placed in gown. Bed in low vc position. Call light in reach. Pulse ox on. NIBP on. Warm blanket given. Ice pack to injury. 22:58 Stone Protocol In Process Unspecified. EDMS 01/03 00:32 Keyla Son MD is Referral Physician. [facility] 01:00 No provider procedures requiring assistance completed. IV discontinued, intact, vc bleeding controlled, No redness/swelling at site. Pressure dressing applied. Administered Medications: 01/02 22: Drug: NS 0.9% 1000 ml Route: IV; Rate: 1000 ml; Site: right antecubital; vc 01/03 00:00 Follow up: IV Status: Completed infusion; IV Intake: 1000ml vc 01/02 22: Drug: morphine 4 mg Route: IVP; Site: right antecubital; vc 01/03 00:00 Follow up: Response: No adverse reaction; Pain is decreased vc 01/02 22:30 Drug: Zofran (Ondansetron) 4 mg Route: IVP; Site: right antecubital; vc 01/03 00:00 Follow up: Response: No adverse reaction vc Intake: 00:00 IV: 1000ml; Total: 1000ml. vc Outcome: 00:34 Discharge ordered by . 7 01:01 Discharged to home ambulatory. vc 01:01 Condition: good 01:01 Discharge instructions given to patient, Instructed on discharge instructions, follow up and referral plans. no drinking with medication, no driving heavy equipment, medication usage, Demonstrated understanding of instructions, follow-up care, medications, Prescriptions given X 1. 01:01 Patient left the ED. vc Signatures: Dispatcher [employer] EDQuirino Gaston 2 Sharri Ruth RN RN vc Holmes, Maurice, MD MD 7
--- NOTE | 2020-01-05 12:53 | RAD REPORT ---
EXAM DESCRIPTION: CT - Stone Protocol - 01/04/2020 5:53 am CLINICAL HISTORY: The patient is 24 years old and is Female; FLANK PAIN TECHNIQUE: Axial computed tomography images of the abdomen and pelvis without intravenous contrast. Sagittal and coronal reformatted images were created and reviewed. This CT exam was performed usi ng one or more of the following dose reduction techniques: automated exposure control, adjustment o f the mA and/or kV according to patient size, and/or use of iterative reconstruction technique. COMPARISON: No relevant prior studies available. FINDINGS: LUNG BASES: Unremarkable. No mass. No consolidation. ABDOMEN: LIVER: Homogeneous without focal mass. GALLBLADDER AND BILE DUCTS: No calcified stones. No ductal dilation. PANCREAS: Unremarkable. No ductal dilation. SPLEEN: Unremarkable. ADRENALS: Unremarkable. No mass. KIDNEYS AND URETERS: No obstructing stones. No hydronephrosis. No perinephric fluid. STOMACH AND BOWEL: The stomach is well distended with food contents. The small bowel is normal i n caliber. Stool is present throughout the colon. There is no mucosal thickening or evidence of bowel obstruction. PELVIS: APPENDIX: No findings to suggest acute appendicitis. BLADDER: The bladder is nearly empty. No stones. REPRODUCTIVE: An IUD is in place. A right ovarian lesion measuring 3.3 cm containing fat densi ty, soft tissue density, calcification is present. The uterus and left ovary are normal. ABDOMEN and PELVIS: INTRAPERITONEAL SPACE: Unremarkable. No free air. No significant fluid collection. BONES/JOINTS: No acute fracture. SOFT TISSUES: The soft tissues are normal. VASCULATURE: Unremarkable. No abdominal aortic aneurysm. LYMPH NODES: Unremarkable. No enlarged lymph nodes. IMPRESSION: 1. No renal or ureteral calculi. No bowel obstruction. 2. Right ovarian dermoid. Recommend prompt follow-up with pelvic ultrasound. Electronically signed by: Daniela Vargas MD 01/03/2020 11:21 PM CDT Due to temporary technical issues with the PACS/Fluency reporting system, reports are being signed by the in house radiologist without review as a courtesy to ensure prompt reporting. The interpreting r adiologist is fully responsible for the content of the report.
[2020-01-07 09:33] VITALS: TEMP 97.4
[2020-01-07 09:39] VITALS: O2SAT 100
[2020-01-07 09:40] VITALS: BP 115/73
== END 2020-01-04 01:01 | disposition home or self-care (01) ==
LOC: ER 20:28
DX: D27.0 Benign neoplasm of right ovary (principal); J45.909 Unspecified asthma, uncomplicated
CPT/HCPCS: 36415; 74176; 76377; 80048; 80076; 81003; 81025; 83690; 85025; 96361; 96374; 96375; 99284; J2405; J7030